=== PATIENT | female | born 1945 | race African-American/Black ===

== ENCOUNTER → 2016-07-22 | Outpatient (CLI) | payer MEDICARE, BC | LOC: RAD 10:21 | PROVIDERS: ATTEND Internal Medicine | DX: M25.511 Pain in right shoulder (principal) ==

== ENCOUNTER 2016-12-02 08:51 | Day surgery (SDC) | payer MEDICARE, BC, OTHER ==
[~2016-12-02 08:51] MED LIST: BESIFLOXACIN HCL 0.6% OPH SUSP 5 ML BOTTLE OD PRN; CYCLOPENTOLATE 0.2%/PHENYLEPHRINE 1% OPH SOLN 2 ML OD PRN; KETOROLAC TROMETHAMINE 0.45% 4 DROP/0.4 ML DROPERETTE OD PRN; TETRACAINE HCL 0.5% OPH SOLN 0.6 ML DROPERETTE OD PRN; TROPICAMIDE 1% OPH SOLN 3 ML OD PRN
[2016-12-02] MEDS ORDERED: LIDOCAINE 1% INJ-PF (10 MG/ML) 30 ML SDV ONE (09:50)
[2016-12-02] MEDS ORDERED: CHONDR SU A NA/HYALUR INTRAOC KIT (SURGICARE) ONE (09:50)
[2016-12-02] MEDS ORDERED: TOBRAMYCIN SULFATE/DEXAMETH OPH OINTMENT 3.5 GM ONE (09:50)
[2016-12-02] MEDS ORDERED: EPINEPHRINE INJ/PF 1 MG/1 ML AMPULE ONE (09:50)
[2016-12-02] MEDS ORDERED: MIDAZOLAM 2 MG/2 ML INJ ONE (09:53)
== END 2016-12-02 11:17 | disposition home or self-care (01) ==
LOC: SC 08:51
PROVIDERS: ATTEND Ophthalmology
PROC: 08RJ3JZ Replacement of Right Lens with Synthetic Substitute, Percutaneous Approach (ICD-10-PCS; principal; 2016-12-02 10:30)
DX: H25.11 Age-related nuclear cataract, right eye (principal); M19.90 Unspecified osteoarthritis, unspecified site; J30.2 Other seasonal allergic rhinitis; K21.9 Gastro-esophageal reflux disease without esophagitis; E78.00 Pure hypercholesterolemia, unspecified; Z79.899 Other long term (current) drug therapy; Z79.01 Long term (current) use of anticoagulants; Z87.891 Personal history of nicotine dependence; Z88.2 Allergy status to sulfonamides; Z88.0 Allergy status to penicillin; Z88.1 Allergy status to other antibiotic agents; Z98.61 Coronary angioplasty status
CPT/HCPCS: 66984; V2630; J2250; J3490 ×3; A9270; J0171; 142

== ENCOUNTER → 2016-12-23 | Day surgery (SDC) | payer MEDICARE, OTHER, BC ==
[~2016-12-23] MED LIST changes: +ACETYLCHOLINE CHLORIDE 20 MG/2 ML KIT ONE; -BESIFLOXACIN HCL 0.6% OPH SUSP 5 ML BOTTLE OD PRN; +CHONDR SU A NA/HYALUR INTRAOC KIT (SURGICARE) ONE; -CYCLOPENTOLATE 0.2%/PHENYLEPHRINE 1% OPH SOLN 2 ML OD PRN; +EPINEPHRINE INJ/PF 1 MG/1 ML AMPULE ONE; -KETOROLAC TROMETHAMINE 0.45% 4 DROP/0.4 ML DROPERETTE OD PRN; +KETOROLAC TROMETHAMINE 0.45% 4 DROP/0.4 ML DROPERETTE OS PRN; +LIDOCAINE 1% INJ-PF (10 MG/ML) 30 ML SDV ONE; +MIDAZOLAM 2 MG/2 ML INJ ONE; -TETRACAINE HCL 0.5% OPH SOLN 0.6 ML DROPERETTE OD PRN; -TROPICAMIDE 1% OPH SOLN 3 ML OD PRN
[2016-12-23] MEDS: TROPICAMIDE 1% OPH SOLN 3 ML OS PRN ×3 (09:53→10:12)
[2016-12-23] MEDS: CYCLOPENTOLATE 0.2%/PHENYLEPHRINE 1% OPH SOLN 2 ML OS PRN ×3 (09:53→10:12)
[2016-12-23] MEDS: BESIFLOXACIN HCL 0.6% OPH SUSP 5 ML BOTTLE OS PRN ×4 (09:54→11:02)
[2016-12-23] MEDS: TETRACAINE HCL 0.5% OPH SOLN 0.6 ML DROPERETTE OS PRN ×3 (09:55→10:27)
[2016-12-23] MEDS: TOBRAMYCIN SULFATE/DEXAMETH OPH OINTMENT 3.5 GM ONE ×2 (10:36→11:02)
[2016-12-23] MEDS: CHONDR SU A NA/HYALUR SOD 0.5 ML DISP.SYRIN ONE ×2 (10:38→10:43)
== END ==
LOC: SC 08:51
PROVIDERS: ATTEND Ophthalmology
PROC: 08RK3JZ Replacement of Left Lens with Synthetic Substitute, Percutaneous Approach (ICD-10-PCS; principal; 2016-12-23 10:30)
DX: H25.12 Age-related nuclear cataract, left eye (principal); Z96.1 Presence of intraocular lens; M19.90 Unspecified osteoarthritis, unspecified site; K21.9 Gastro-esophageal reflux disease without esophagitis; I10 Essential (primary) hypertension; E78.00 Pure hypercholesterolemia, unspecified; E89.0 Postprocedural hypothyroidism; Z88.5 Allergy status to narcotic agent; Z88.1 Allergy status to other antibiotic agents; Z79.01 Long term (current) use of anticoagulants; Z79.899 Other long term (current) drug therapy; Z87.891 Personal history of nicotine dependence; Z88.2 Allergy status to sulfonamides; Z88.0 Allergy status to penicillin
CPT/HCPCS: 66984; V2632; J3490 ×5; J2250; A9270; J0171; 142

== ENCOUNTER → 2016-12-30 | Outpatient (CLI) | payer MEDICARE, BC ==
--- NOTE | 2017-01-01 08:43 | WOMENS IMAGING REPORT ---
EXAM DESCRIPTION: 3D SCREENING MAMMO BILAT COMPLETED DATE/TIME: 12/30/2016 10:00 am REASON FOR STUDY: ROUTINE SCREENING 3D; Z12.31 Z12.31 ENCNTR SCREEN MAMMOGRAM FOR MALIGNANT NEOPLAS M OF LANDY COMPARISON: 2011 TECHNIQUE: Standard craniocaudal and mediolateral oblique views of each breast recorded using digita l acquisition and breast tomosynthesis. LIMITATIONS: None. FINDINGS: No masses, calcifications or architectural distortion. No areas of suspicion. Read with the assistance of CAD. .[facility] - R2 Cenova Version 1.3 .[facility] - R2 Cenova Version 1.[address] Imaging - R2 Cenova Version 2.4 .[facility] - R2 Cenova Version 2.4 .[facility] - R2 Hydraulics Teacher Version 9.2 IMPRESSION: NORMAL MAMMOGRAM. BIRADS 1. BREAST DENSITY: b. There are scattered areas of fibroglandular density. BIRAD: 1 NEGATIVE RECOMMENDATION: ROUTINE SCREENING COMMENT: The patient has been notified of the results by letter per SA requirements. Additional no tification policies are in place for contacting patient with suspicious or incomplete findings. Quality ID #[id number]: The [employer] recommends an annual screening mammogram for women aged 40 years or over. This facility utilizes a reminder system to ensure that all patients receive reminder letters, and/or direct phone calls for appointments. This includes reminders for routine scr eening mammograms, diagnostic mammograms, or other Breast Imaging Interventions when appropriate. Th is patient will be placed in the appropriate reminder system. The [employer] (ACR) has developed recommendations for screening MRI of the breast s in certain patient populations, to be used in conjunction with mammography. Breast MRI surveillanc e may be appropriate for women with more than 20% lifetime risk of developing breast cancer as deter mined by genetic testing, significant family history of the disease, or history of mantle radiation f or Hodgkins Disease. ACR Practice Guidelines 2008. DBT Technology DBT is a type of tomographic mammography. With conventional mammography, overlapping breast tissue ma y make lesions difficult to detect, even with good compression. DBT uses an x-ray tube that rotates a round the breast, taking images at different angles. These images are then combined to create thin sl ices of the breast that the radiologist can view as a 3D reconstruction. The WHOOP unit can perform full-field digital mammograms (2D imaging); or DBT (3D imaging); or both, in a combination mode that quickly performs both the mammogram and the tomosynthesis scan while the breast is still compressed. PQRS 6045F: Fluoroscopic imaging is not utilized for breast tomosynthesis. TECHNICAL DOCUMENTATION: FINDING NUMBER: (1) ASSESSMENT: (1) JOB ID: [id number] [employer]- All Rights Reserved
== END ==
LOC: WI 09:11
PROVIDERS: ATTEND Internal Medicine
DX: Z12.31 Encounter for screening mammogram for malignant neoplasm of breast (principal)
CPT/HCPCS: 77063; G0202; 77067

== ENCOUNTER → 2017-12-31 | Outpatient (CLI) | payer MEDICARE, OTHER ==
--- NOTE | 2017-12-31 11:44 | WOMENS IMAGING REPORT ---
EXAM DESCRIPTION: 3D SCREENING MAMMO BILAT COMPLETED DATE/TIME: 12/31/2017 11:12 am REASON FOR STUDY: SCREENING MAMMO Z12.31 ENCNTR SCREEN MAMMOGRAM FOR MALIGNANT NEOPLASM OF LANDY COMPARISON: 2011 TECHNIQUE: Standard craniocaudal and mediolateral oblique views of each breast recorded using digita l acquisition and breast tomosynthesis. LIMITATIONS: None. FINDINGS: No masses, calcifications or architectural distortion. No areas of suspicion. Read with the assistance of CAD. .[facility] - R2 Cenova Version 1.3 .[facility] Imaging - R2 Cenova Version 1.3 .[facility] Imaging - R2 Cenova Version 2.4 .[facility] - R2 Cenova Version 2.4 .[facility] - R2 Computer Security Specialist Version 9.2 IMPRESSION: NORMAL MAMMOGRAM. BIRADS 1. BREAST DENSITY: b. There are scattered areas of fibroglandular density. BIRAD: 1 NEGATIVE RECOMMENDATION: ROUTINE SCREENING Please continue yearly bilateral screening tomosynthesis in December 2018 COMMENT: The patient has been notified of the results by letter per MQSA requirements. Additional no tification policies are in place for contacting patient with suspicious or incomplete findings. Quality ID #[id number]: The [employer] recommends an annual screening mammogram for women aged 40 years or over. This facility utilizes a reminder system to ensure that all patients receive reminder letters, and/or direct phone calls for appointments. This includes reminders for routine scr eening mammograms, diagnostic mammograms, or other Breast Imaging Interventions when appropriate. Th is patient will be placed in the appropriate reminder system. The [employer] (ACR) has developed recommendations for screening MRI of the breast s in certain patient populations, to be used in conjunction with mammography. Breast MRI surveillanc e may be appropriate for women with more than 20% lifetime risk of developing breast cancer as deter mined by genetic testing, significant family history of the disease, or history of mantle radiation f or Hodgkins Disease. ACR Practice Guidelines 2008. DBT Technology DBT is a type of tomographic mammography. With conventional mammography, overlapping breast tissue ma y make lesions difficult to detect, even with good compression. DBT uses an x-ray tube that rotates a round the breast, taking images at different angles. These images are then combined to create thin sl ices of the breast that the radiologist can view as a 3D reconstruction. The [employer] unit can perform full-field digital mammograms (2D imaging); or DBT (3D imaging); or both, in a combination mode that quickly performs both the mammogram and the tomosynthesis scan while the breast is still compressed. PQRS 6045F: Fluoroscopic imaging is not utilized for breast tomosynthesis. TECHNICAL DOCUMENTATION: FINDING NUMBER: (1) ASSESSMENT: (1) JOB ID: [id number] [employer]- All Rights Reserved Reading location - IP/workstation name: [email or web address]
== END ==
LOC: WI 10:28
PROVIDERS: ATTEND Internal Medicine
DX: Z12.31 Encounter for screening mammogram for malignant neoplasm of breast (principal)
CPT/HCPCS: 77063; 77067

== ENCOUNTER → 2018-02-22 | Outpatient (CLI) | payer MEDICARE, OTHER ==
--- NOTE | 2018-02-22 12:09 | RADIOLOGY REPORT (SQ) ---
EXAM DESCRIPTION: CTA CHEST COMPLETED DATE/TIME: 02/22/2018 11:49 am REASON FOR STUDY: SOB (R06.02) R06.2 WHEEZING R06.02 SHORTNESS OF BREATH COMPARISON: 04/17/2016 TECHNIQUE: CT scan of the chest performed using helical scanning technique with dynamic intravenous contrast injection. Images reviewed with lung, soft tissue and bone windows. Reconstructed coronal and sagittal MPR images reviewed. Additional 3 dimensional post-processing performed to develop Maximal Intensity Projection images (OH P). All images stored on PACS. All CT scanners at this facility use dose modulation, iterative reconstruction, and/or weight based d osing when appropriate to reduce radiation dose to as low as reasonably achievable (ALARA). [facility]: Dose Right [facility]: CareDose [facility]: Dose Right [facility]: Teradose 4D [facility]: MileWise CONTRAST TYPE AND DOSE: contrast/concentration: Isovue 350.00 mg/ml; Total Contrast Delivered: 82.0 ml; Total Saline Delivered: 75.1 ml RENAL FUNCTION: Creatinine 1.3 RADIATION DOSE: CT Rad equipment meets quality standard of care and radiation dose reduction techniq ues were employed. CTDIvol: 16.5 - 22.1 mGy. DLP: 831 mGy-cm. . LIMITATIONS: None. FINDINGS: LUNGS AND PLEURA: Scarring in the lung bases. No evidence of pulmonary edema or pneumonia . AORTA AND GREAT VESSELS: No aneurysm. Contrast bolus not optimized for the aorta. HEART: No pericardial effusion. PULMONARY ARTERIES: No emboli visualized in the main pulmonary arteries or the segmental branches. HILAR AND MEDIASTINAL STRUCTURES: No identified masses or abnormal nodes. HARDWARE: None in the chest. UPPER ABDOMEN: No acute findings. Limited exam. THYROID AND OTHER SOFT TISSUES: No masses. No adenopathy. BONES: No acute or significant finding. 3D MIPS: Confirm above findings. OTHER: No other significant finding. IMPRESSION: No evidence of pulmonary embolus. COMMENT: Quality ID # [id number]: Final reports with documentation of one or more dose reduction techniques (e.g., Automated exposure control, adjustment of the mA and/or kV according to patient size, use of iterative reconstruction technique) TECHNICAL DOCUMENTATION: JOB ID: [id number] [employer]- All Rights Reserved Reading location - IP/workstation name: [email or web address]
== END ==
LOC: RAD 11:00
PROVIDERS: ATTEND Internal Medicine
DX: R06.02 Shortness of breath (principal); R06.2 Wheezing
CPT/HCPCS: 71275; 82565

== ENCOUNTER → 2018-03-17 | Outpatient (CLI) | payer MEDICARE ==
--- NOTE | 2018-03-17 13:46 | RADIOLOGY REPORT (SQ) ---
EXAM DESCRIPTION: CHEST 2 VIEWS COMPLETED DATE/TIME: 03/17/2018 1:08 pm REASON FOR STUDY: SHORTNESS OF BREATH (TO BE READ WITH VQ SCAN TODAY) COMPARISON: 04/17/2016 EXAM PARAMETERS: NUMBER OF VIEWS: two views TECHNIQUE: Digital Frontal and Lateral radiographic views of the chest acquired. RADIATION DOSE: NA LIMITATIONS: none FINDINGS: LUNGS AND PLEURA: No opacities, masses or pneumothorax. No pleural effusion. MEDIASTINUM AND HILAR STRUCTURES: No masses or contour abnormalities. HEART AND VASCULAR STRUCTURES: Heart normal size. No evidence for failure. BONES: No acute findings. HARDWARE: None in the chest. OTHER: No other significant finding. IMPRESSION: NO ACUTE RADIOGRAPHIC FINDING IN THE CHEST. TECHNICAL DOCUMENTATION: JOB ID: [id number] [employer]- All Rights Reserved Reading location - IP/workstation name: [email or web address]
--- NOTE | 2018-03-17 15:38 | RADIOLOGY REPORT (SQ) ---
EXAM DESCRIPTION: NM LUNG VENT/PERF SCAN COMPLETED DATE/TIME: 03/17/2018 1:13 pm REASON FOR STUDY: SHORTNESS OF BREATH R06.02 SHORTNESS OF BREATH COMPARISON: CT angio chest 02/22/2018, 04/17/2016 Ventilation-perfusion scan 11/14/2015 PET-CT 04/17/2016 RADIONUCLIDE AND DOSE: 5.4 millicuries TC-99m MAA Intravenous 31.3 millicuries TC-99m DTPA Inhaled aerosol TECHNIQUE: Eight views of the lungs acquired post ventilation of DTPA aerosol. Eight matching views of the lungs acquired following injection of MAA. LIMITATIONS: None. FINDINGS: VENTILATION: Symmetric and homogeneous distribution of DTPA aerosol during ventilatory pha se. No significant areas of photopenia. PERFUSION: Single bandlike scar in the superior segment right lower lobe, nonsegmental defect. Remai nder the perfusion images are otherwise unremarkable OTHER: No other significant finding. IMPRESSION: NORMAL VENTILATION-PERFUSION LUNG SCAN. NEGATIVE FOR PULMONARY EMBOLI. TECHNICAL DOCUMENTATION: JOB ID: [id number] [employer] All Rights Reserved Reading location - IP/workstation name: [email or web address]
== END ==
LOC: RAD 11:21
PROVIDERS: ATTEND Internal Medicine
DX: R06.02 Shortness of breath (principal)
CPT/HCPCS: 71046; 78582; A9540; A9567

== ENCOUNTER → 2018-05-05 | Outpatient (CLI) | payer MEDICARE, BC ==
[~2018-05-05] MED LIST changes: -ACETYLCHOLINE CHLORIDE 20 MG/2 ML KIT ONE; -CHONDR SU A NA/HYALUR INTRAOC KIT (SURGICARE) ONE; -EPINEPHRINE INJ/PF 1 MG/1 ML AMPULE ONE; -KETOROLAC TROMETHAMINE 0.45% 4 DROP/0.4 ML DROPERETTE OS PRN; -LIDOCAINE 1% INJ-PF (10 MG/ML) 30 ML SDV ONE; -MIDAZOLAM 2 MG/2 ML INJ ONE; +REGADENOSON INJ 0.4 MG/5 ML DISP.SYRIN IV ONE
--- NOTE | 2018-05-05 19:32 | DRAGON STRESS TEST REPORT ---
INTRAVENOUS LEXISCAN CARDIOLITE STRESS TEST USING SINGLE PHOTON EMMISION COMPUTERIZED TOMOGRAPHIC. DATE OF PROCEDURE: May 05, 2018, INDICATION : Shortness of breath CARDIAC RISK FACTORS: Hypertension, dyslipidemia RESTING EKG: Sinus rhythm, left axis deviation, no acute ST-T wave changes are noted STRESS EKG: No significant ST segment changes noted with LexiScan bolus REASON FOR TERMINATION: Protocol. PROCEDURE REPORT: Baseline heart rate 74 beats per minute with blood pressure of 102/57. Patient had no significant complaints. Patient was bolused with Lexiscan 0.4 mg intravenously followed by saline bolus. Heart rate at 2 minutes post bolus 94 with a blood pressure of 124/50. 3 minutes post bolus heart rate 89 with blood pressure of 108/48. No significant EKG changes were noted. Patient had no significant complaints during the procedure or postprocedure. CONCLUSIONS: Normal EKG and hemodynamic response to IV LexiScan. NUCLEAR DATA: At rest the patient was given 15.30 millicuries of technetium 99 sestamibi injected intravenously. As per protocol rest gated SPECT images were obtained. On day of stress test, the patient was given intravenous LexiScan at a dose of 0.4 mg in 5 mL intravenously, followed by flush with normal saline. Subsequently the stress dose of 4.4 millicuries of technetium 99 sestamibi was injected intravenously. As per protocol stress gated images were obtained. NUCLEAR INTERPRETATION: Both raw and processed data were used for interpretation. Visual, qualitative, computer-generated quantitative data was used. There was good myocardial uptake of technetium compound. Motion artifact and soft tissue attenuations were noted. Increased visceral uptake was noted. No definitive areas of transient perfusion defect noted, No definitive areas of fixed perfusion defect or scars noted. EKG gated imaging showed LV EF at 62%, rest and stress gated EF similar visually. T. I D. ratio was WNL. Lung heart ratio noted to be within normal limits WNL. No significant extracardiac and abnormal radiotracer activities were noted. RV free wall uptake was noted to be increased. IMPRESSION: Also refer to comments under nuclear interpretation. Also test results needs to be interpreted in the context of pretest probability. 1. No definitive areas of transient perfusion defect noted. 2. There is no definitive scintigraphic evidence of myocardial infarction/scar. 3. EKG gated imaging shows left ventricular ejection fraction of approx. 62 %. RV free wall uptake noted to be increased consistent with mild RVH. 4. Clinical correlation requested as worse disease and or balanced ischemia could be missed. In approximately 10% of the cases Lexiscan may not cause adequate vasodilatory stress. RECOMMENDATIONS: Aggressive risk factor modification and medical management. Further evaluation may be needed if continued symptoms or other high risk indicators are noted on clinical evaluation. Close cardiology follow-up is also recommended. Clinical correlation with echocardiogram derived ejection fraction. Inability to exercise by itself can lead to increased cardiovascular event risks. Consider cardiology consultation and or follow-up if clinically indicated. I am available for cardiology evaluation and consultation if requested by the grocery packer, unless patient already has a green chain puller. Dr. Chiquita Muniz. MRCP Board certified in cardiology and sleep medicine. Board certified in nuclear cardiology, adult echocardiography. GISELA
== END ==
LOC: RAD 06:40
PROVIDERS: ATTEND Internal Medicine
DX: R06.02 Shortness of breath (principal)
CPT/HCPCS: 93017; 78452; A9500; J2785; Q9969

== ENCOUNTER → 2018-05-16 | Outpatient (CLI) | payer MEDICARE, BC, OTHER ==
--- NOTE | 2018-05-16 14:00 | WOMENS IMAGING REPORT ---
EXAM DESCRIPTION: BONE DENSITY HIP/SPINE COMPLETED DATE/TIME: 05/16/2018 8:39 am REASON FOR STUDY: BONE DENSITY TEST/ M81.0 M81.0 AGE-RELATED OSTEOPOROSIS W/O CURRENT PATHOLOGICAL FRAC COMPARISON: None. TECHNIQUE: Dual-Energy X-ray Absorptiometry (DEXA) of the AP Spine and Hip. LIMITATIONS: None. FINDINGS: LUMBAR SPINE: The bone mineral density (BMD) measured from L1-L4 in the AP projection correlates with a T-score of 1.4, which is normal as defined by the World Health Organization. HIP: The bone mineral density (BMD) measured in the left hip correlates with a T-score of -1.4, which is o steopenia as defined by the World Health Organization. IMPRESSION: 1. LUMBAR SPINE: Normal 2. HIP: Osteopenia COMMENT: The World Health Organization defines low BMD as follows: T-score: Normal: Greater than -1.0 Osteopenia: Between -1.0 and -2.5 Osteoporosis: Less than -2.5 without fractures Established osteoporosis: Less than -2.5 with fractures In general, you may wish to consider: Diagnosis Treatment Follow-up DEXA Normal BMD Prevention 2-3 years Osteopenia Prevention/Therapy 1-2 years Osteoporosis Therapy Yearly TECHNICAL DOCUMENTATION: JOB ID: [id number] [employer]- All Rights Reserved Reading location - IP/workstation name: [email or web address]
== END ==
LOC: WI 07:39
PROVIDERS: ATTEND Internal Medicine
DX: M81.0 Age-related osteoporosis without current pathological fracture (principal)
CPT/HCPCS: 77080

== ENCOUNTER → 2018-10-26 | Outpatient (CLI) | payer MEDICARE, OTHER ==
--- NOTE | 2018-10-26 10:56 | RADIOLOGY REPORT (SQ) ---
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 Images reviewed wi th bone, brain and subdural windows. Additional sagittal and coronal reconstructions were generated. Images stored on PACS. All CT scanners at this facility use dose modulation, iterative reconstruction, and/or weight based d osing when appropriate to reduce radiation dose to as low as reasonably achievable (ALARA). [facility]: Dose Right [facility]: CareDose [facility]: Dose Right [facility]: Teradose 4D [facility]: Beatpacking RADIATION DOSE: CT Rad equipment meets quality standard of care and radiation dose reduction techniq ues were employed. CTDIvol: 48.5 mGy. DLP: 879 mGy-cm. mGy. LIMITATIONS: None. FINDINGS: VENTRICLES: Normal size and contour. CEREBRUM: No masses. No hemorrhage. No midline shift. No evidence for acute infarction. Normal gra y/white matter differentiation. No areas of low density in the white matter. CEREBELLUM: No masses. No hemorrhage. No alteration of density. No evidence for acute infarction. EXTRAAXIAL SPACES: No fluid collections. No masses. ORBITS AND GLOBE: No intra- or extraconal masses. Normal contour of globe without masses. CALVARIUM: No fracture. Torus palatinus. PARANASAL SINUSES: No fluid or mucosal thickening. SOFT TISSUES: No mass or hematoma. OTHER: No other significant finding. IMPRESSION: No evidence of large vascular territory infarct or other acute intracranial process. EVIDENCE OF ACUTE STROKE: NO. COMMENT: Quality ID # [id number]: Final reports with documentation of one or more dose reduction techniques (e.g., Automated exposure control, adjustment of the mA and/or kV according to patient size, use of iterative reconstruction technique) TECHNICAL DOCUMENTATION: JOB ID: [id number] [employer]- All Rights Reserved Reading location - IP/workstation name: [email or web address]
--- NOTE | 2018-10-26 11:02 | RADIOLOGY REPORT (SQ) ---
EXAM DESCRIPTION: HIP RIGHT AP/LATERAL COMPLETED DATE/TIME: 10/26/2018 10:18 am REASON FOR STUDY: PAIN IN RIGHT HIP (M25.551) COMPARISON: None. NUMBER OF VIEWS: Two view. LIMITATIONS: None. FINDINGS: Mild scoliosis. Mild SI DJD. Symphysis pubis intact. Hips look symmetric with minimal d egenerative osteophyte formation and very slight narrowing. No fracture or bone lesion. OTHER: No other significant finding. IMPRESSION: DJD. Relatively mild. No fracture or worrisome bone lesion. TECHNICAL DOCUMENTATION: JOB ID: [id number] Reading location - IP/workstation name: [email or web address]
== END ==
LOC: RAD 08:26
PROVIDERS: ATTEND Internal Medicine
DX: M25.551 Pain in right hip (principal); I63.9 Cerebral infarction, unspecified
CPT/HCPCS: 70450

== ENCOUNTER → 2018-12-14 | Outpatient (CLI) | payer MEDICARE, OTHER ==
--- NOTE | 2018-12-14 09:08 | RADIOLOGY REPORT (SQ) ---
EXAM DESCRIPTION: CT CERVICAL SPINE WITHOUT COMPLETED DATE/TIME: 12/14/2018 8:51 am REASON FOR STUDY: RADICULOPATHY,CERVICAL REGION M54.12 RADICULOPATHY, CERVICAL REGION COMPARISON: 03/29/2010 TECHNIQUE: Axial images acquired through the cervical spine without intravenous contrast. Images re viewed with lung, soft tissue and bone windows. Reconstructed coronal and sagittal MPR images review ed. Images stored on PACS. All CT scanners at this facility use dose modulation, iterative reconstruction, and/or weight based d osing when appropriate to reduce radiation dose to as low as reasonably achievable (ALARA). [facility]: Dose Right [facility]: CareDose [facility]: Dose Right [facility]: Teradose 4D [facility]: comScore RADIATION DOSE: CT Rad equipment meets quality standard of care and radiation dose reduction techniq ues were employed. CTDIvol: 22.3 mGy. DLP: 493 mGy-cm. mGy. LIMITATIONS: None. FINDINGS: ALIGNMENT: Anatomic. MINERALIZATION: Decreased. VERTEBRAL BODIES: No fractures or dislocation. DISCS: Multilevel degenerate disc disease with disc height loss and osteophytosis greatest at C5-6 an d C6-7, similar to prior. No evidence of high-grade osseous spinal canal stenosis. FACETS, LATERAL MASSES, POSTERIOR ELEMENTS: No fractures. No dislocation. No acute findings. Facet arthropathy greatest at C4-5 bilaterally. There moderate osseous neural foraminal narrowing seconda ry to facet and uncovertebral hypertrophy greatest at C5-6 on the right. HARDWARE: None in the spine. VISUALIZED RIBS: No fractures. LUNG APICES AND SOFT TISSUES: Enlargement of the right lobe of the thyroid without discrete nodule id entified, grossly stable compared to prior. Status post left thyroidectomy. OTHER: No other significant finding. IMPRESSION: 1. Multilevel degenerative changes of the cervical spine greatest at C5 - C7, similar t o prior. Moderate osseous neural foraminal narrowing secondary to facet and uncovertebral hypertroph y at C5-6 on the right. 2. No evidence of acute bony abnormality. TECHNICAL DOCUMENTATION: JOB ID: [id number] Quality ID # [id number]: Final reports with documentation of one or more dose reduction techniques (e.g., Au tomated exposure control, adjustment of the mA and/or kV according to patient size, use of iterative reconstruction technique) 2010 [employer]- All Rights Reserved Reading location - IP/workstation name: [email or web address]
== END ==
LOC: RAD 08:39
PROVIDERS: ATTEND Internal Medicine
DX: M54.12 Radiculopathy, cervical region (principal)
CPT/HCPCS: 72125

== ENCOUNTER 2019-06-25 07:24 | Emergency (ER) | payer MEDICARE, BC, OTHER ==
[2019-06-25 08:33] LABS: ABSOLUTE BASOPHILS # (AUTO) 0.1 10^3/uL (0.0-0.2); ABSOLUTE EOSINOPHILS # (AUTO) 0.1 10^3/uL (0.0-0.6); ABSOLUTE MONOCYTES (AUTO) 0.5 10^3/uL (0.1-1.4); ABSOLUTE NEUT (AUTO) 5.3 10^3/uL (1.7-8.2); BASOPHILS % (AUTO) 1.1 % (0-2); EOSINOPHILS % (AUTO) 1.8 % (0-6); HEMATOCRIT 39.6 % (36.0-47.0); HEMOGLOBIN 13.3 g/dL (12.0-15.5); LYMPHOCYTES % (AUTO) 25.2 % (13-45); MEAN CORPUSCULAR HEMOGLOBIN 28.7 pg (27.0-33.4); MEAN CORPUSCULAR HGB CONC 33.5 g/dL (32.0-36.0); MEAN CORPUSCULAR VOLUME 86 fl (80-97); MONOCYTES % (AUTO) 6.7 % (3-13); PLATELET COUNT 209 10^3/uL (150-450); RED BLOOD COUNT 4.63 10^6/uL (3.72-5.28); RED CELL DISTRIBUTION WIDTH 14.6 % (11.5-14.0); SEGMENTED NEUTROPHILS % (AUTO) 65.2 % (42-78); TOTAL CELLS COUNTED % (AUTO) 100 %; WHITE BLOOD COUNT 8.1 10^3/uL (4.0-10.5)
[2019-06-25 08:49] LABS: APPEARANCE,URINE CLEAR; BILIRUBIN,URINE NEGATIVE (NEGATIVE); COLOR,URINE YELLOW; GLUCOSE, URINE NEGATIVE (NEGATIVE); KETONES,URINE NEGATIVE (NEGATIVE); LEUKOCYTE ESTERASE,URINE NEGATIVE (NEGATIVE); NITRITE,URINE NEGATIVE (NEGATIVE); PROTEIN,URINE NEGATIVE (NEGATIVE); URINE SPECIFIC GRAVITY 1.015; UROBILINOGEN,URINE NEGATIVE mg/dL (<2.0)
[2019-06-25 08:52] LABS: ALBUMIN 4.3 g/dL (3.5-5.0); ALKALINE PHOSPHATASE 69 U/L (38-126); ANION GAP 8 (5-19); ASPARTATE AMINO TRANSFERASE 32 U/L (14-36); BILIRUBIN,DIRECT 0.2 mg/dL (0.0-0.4); BILIRUBIN,TOTAL 0.7 mg/dL (0.2-1.3); BLOOD UREA NITROGEN 20 mg/dL (7-20); CALCIUM 9.3 mg/dL (8.4-10.2); CARBON DIOXIDE 30 mmol/L (22-30); CHLORIDE 103 mmol/L (98-107); GLUCOSE 90 mg/dL (75-110); POTASSIUM 4.4 mmol/L (3.6-5.0); TOTAL PROTEIN 8.1 g/dL (6.3-8.2)
[2019-06-25] MEDS ORDERED: MORPHINE SULFATE 10 MG/ML INJ IV ONE (10:26)
--- NOTE | 2019-06-25 10:30 | ER Document Report ---
ED General - General Chief Complaint: Abdominal Pain Stated Complaint: FLANK PAIN Time Seen by Provider: 06/25/19 09:54 Primary Care Provider: BRI HENNING MD [Primary Care Provider] - Follow up as needed Notes: 73-year-old female presents emergency department complaining of right upper quadrant abdominal pain that radiates to her back and her shoulder blade since Wednesday. States that it is a cramping pressure that she thought might of been gas. States she took a laxative and had bowel movements for 3 days but no change in her pain. Denies dysuria or frequency, admits mild nausea. Denies any change with food. Denies any vomiting or diarrhea. States that she did have a partial right nephrectomy several years ago for kidney cancer. States that her kidney cancer has not been checked in recent years. TRAVEL OUTSIDE OF THE [place] IN LAST 30 DAYS: No - Related Data Allergies/Adverse Reactions: codeine [Codeine] Allergy (Intermediate, Verified 03/30/16 15:54) dizzy doxycycline Allergy (Intermediate, Verified 11/27/16 12:35) Hives doxylamine Allergy (Intermediate, Verified 11/27/16 12:35) Hives levofloxacin [From Levaquin] Allergy (Intermediate, Verified 11/27/16 12:35) NAUSEA/DIZZY oxycodone [Oxycodone] Allergy (Intermediate, Verified 11/27/16 12:35) NAUSEA/DIZZY Penicillins Allergy (Intermediate, Verified 03/30/16 15:54) Syncope Sulfa (Sulfonamide Antibiotics) Allergy (Intermediate, Verified 11/27/16 12:35) itching/RASH tramadol [Tramadol] Allergy (Intermediate, Verified 11/27/16 12:35) NAUSEA/DIZZY Past Medical History - General Information source: Patient - Social History Smoking Status: Never Smoker Chew tobacco use (# tins/day): No Frequency of alcohol use: None Drug Abuse: None Family History: COPD, Hypertension Patient has suicidal ideation: No Patient has homicidal ideation: No - Past Medical History Cardiac Medical History: Reports: Hx Hypercholesterolemia, Hx Hypertension, Hx Pulmonary Embolism Denies: Hx Heart Attack Pulmonary Medical History: Reports: Hx Asthma - NO MEDS, PULMONARY EMBOLISM 04/2016, Hx Tuberculosis - hypo Neurological Medical History: Denies: Hx Cerebrovascular Accident, Hx Seizures Endocrine Medical History: Reports: Hx Hypothyroidism Malignancy Medical History: Reports: Hx Renal (Kidney) Cancer - to have surgery 10/18/12 to remove mass from kidney GI Medical History: Reports: Hx Gastroesophageal Reflux Disease, Hx Hiatal Hernia. Denies: Hx Hepatitis, Hx Ulcer Psychiatric Medical History: Infectious Medical History: Denies: Hx Hepatitis Past Surgical History: Reports: Hx Cardiac Catheterization - July 2012, Hx Hysterectomy, Hx Kidney (Renal Surgery) - partial right nephrectomy, Hx Ortho pedic Surgery - L knee; L shoulder, Hx Thyroid Surgery - biopsy. Denies: Hx Mastectomy, Hx Open Heart Surgery, Hx Pacemaker - Immunizations Hx Diphtheria, Pertussis, Tetanus Vaccination: No - unk Hx Pneumococcal Vaccination: 07/19/07 Review of Systems - Review of Systems Constitutional: No symptoms reported Cardiovascular: See HPI Respiratory: No symptoms reported Gastrointestinal: See HPI Genitourinary: See HPI, Flank pain. denies: Dysuria, Discharge, Incontinence Skin: No symptoms reported -: Yes All other systems reviewed and negative Physical Exam - Vital signs Vitals: Temp Pulse Resp BP Pulse Ox 98.2 F 65 18 152/68 H 100 06/25/19 07:25 06/25/19 07:25 06/25/19 07:25 06/25/19 07:25 06/25/19 07:25 Interpretation: Hypertensive - Notes Notes: GENERAL: Alert, interacts well. No acute distress. HEAD: Normocephalic, atraumatic EYES: Pupils equal, round and reactive to light, extraocular movements intact. ENT: Oral mucosa moist, tongue midline. NECK: Full range of motion, supple, trachea midline. LUNGS: Clear to auscultation bilaterally, no wheezes, rales or rhonchi, no respiratory distress. HEART: Regular rate and rhythm, no murmurs, gallops, rubs. ABDOMEN: Soft, epigastric, right upper quadrant and right lower quadrant tenderness to palpation, nondistended, bowel sounds present in all 4 quadrants. EXTREMITIES: Moves all 4 extremities spontaneously, no edema, radial and dorsalis pedis pulses 2/4 bilaterally. No cyanosis. NEUROLOGICAL: Alert and oriented x3, normal speech. PSYCH: Normal mood, normal affect. SKIN: Warm, Dry, normal turgor, no rashes or lesions noted. Specifically no shingles noted. Course - Re-evaluation Re-evalutation: 06/25/19 15:30 CBC unremarkable, CMP grossly unremarkable, troponin negative, lipase normal, urinalysis shows no signs of blood or infection, given her right upper quadrant tenderness palpation I did order an ultrasound of her gallbladder and this was negative, given her history of renal cancer with partial nephrectomy that she states has not been followed up in several years I did get a CAT scan of the abdomen and pelvis because I was concerned that she may have had a reoccurrence of her renal cancer with local invasion that was causing this pain, scalp CAT scan was completely normal, no evidence of infection, mass or obstruction. Chest x-ray shows no acute process. Physical examination does not show any signs of shingles, she does have some reproducible tenderness to palpation along her ribs on the right-hand side on her back as well. Discussed with patient that she may later develop a vesicular rash that could indicate shingles, she is aware that if she develops a rash she should follow-up with her primary care physician or return to the emergency department. It is possible that this is coming from muscle spasm. Patient is agreeable to trying Flexeril and filling a prescription as an outpatient if it helps. She will follow-up with her primary care physician Dr. Arce as an outpatient. Patient is discharged home. - Vital Signs Vital signs: Temp Pulse Resp BP Pulse Ox 97.6 F 65 16 118/62 97 06/25/19 09:00 06/25/19 07:25 06/25/19 11:15 06/25/19 11:15 06/25/19 11:15 - Laboratory Result Diagrams: 06/25/19 08:20 06/25/19 08:20 Laboratory results interpreted by me: 06/25/19 06/25/19 08:20 08:20 RDW 14.6 H Est GFR ( Amer) 59 L Est GFR (MDRD) Non-Af 48 L Discharge - Discharge Clinical Impression: Acute right flank pain Condition: Stable Disposition: HOME, SELF-CARE Additional Instructions: I do not know exactly what is causing the pain on your right-hand side. Today we did not find any signs of kidney stone, kidney infection, urine infection or intestinal infection. Your gallbladder appeared normal. We are treating you with Flexeril for possible muscle spasm. If you develop a blistering rash on your right side or back please follow-up with your primary care physician or return to the emergency department as this may be shingles. Please return to the emergency department for vomiting, worsening pain, fevers or any new or concerning symptoms. Prescriptions: Cyclobenzaprine HCl [Flexeril 5 mg Tablet] 5 - 10 mg PO TIDP PRN #15 tablet PRN Reason: Referrals: BRI HENNING MD [Primary Care Provider] - Follow up as needed
--- NOTE | 2019-06-25 11:21 | RADIOLOGY REPORT (SQ) ---
EXAM DESCRIPTION: CHEST 2 VIEWS COMPLETED DATE/TIME: 06/25/2019 11:08 am REASON FOR STUDY: RTUQ pain to back, h/o kidney CA, part neph R COMPARISON: 03/17/2018 EXAM PARAMETERS: NUMBER OF VIEWS: two views TECHNIQUE: Digital Frontal and Lateral radiographic views of the chest acquired. RADIATION DOSE: NA LIMITATIONS: none FINDINGS: LUNGS AND PLEURA: No opacities, masses or pneumothorax. No pleural effusion. MEDIASTINUM AND HILAR STRUCTURES: No masses or contour abnormalities. HEART AND VASCULAR STRUCTURES: Heart normal size. No evidence for failure. BONES: No acute findings. HARDWARE: None in the chest. OTHER: No other significant finding. IMPRESSION: NO ACUTE RADIOGRAPHIC FINDING IN THE CHEST. TECHNICAL DOCUMENTATION: JOB ID: [id number] [employer]- All Rights Reserved Reading location - IP/workstation name: [email or web address]
--- NOTE | 2019-06-25 11:23 | RADIOLOGY REPORT (SQ) ---
EXAM DESCRIPTION: U/S ABDOMEN LIMITED W/O DOP COMPLETED DATE/TIME: 06/25/2019 11:04 am REASON FOR STUDY: RUQ pain, ? GB COMPARISON: None. TECHNIQUE: Dynamic and static grayscale images acquired of the abdomen and recorded on PACS. Additio nal selected color Doppler and spectral images recorded. LIMITATIONS: Limited visualization. Poor acoustical window FINDINGS: PANCREAS: No masses. Visualized pancreatic duct normal caliber. LIVER: Normal size Echo texture normal. No focal masses. LIVER VASCULATURE: Normal directional flow of the main portal vein and hepatic veins. GALLBLADDER: No stones. Normal wall thickness. No pericholecystic fluid. ULTRASOUND-DETECTED ALY'S SIGN: Negative. INTRAHEPATIC DUCTS AND COMMON DUCT: CBD and intrahepatic ducts normal caliber. No filling defects. INFERIOR VENA CAVA: Normal flow. AORTA: No aneurysm. RIGHT KIDNEY: Normal size. Normal echogenicity. No solid or suspicious masses. No hydronephros is. No calcifications. PERITONEAL AND RIGHT PLEURAL SPACE: No ascites or effusions. OTHER: No other significant findings. IMPRESSION: NORMAL RIGHT UPPER QUADRANT ULTRASOUND VISUALIZED. TECHNICAL DOCUMENTATION: JOB ID: [id number]- All Rights Reserved Reading location - IP/workstation name: [email or web address]
--- NOTE | 2019-06-25 13:47 | RADIOLOGY REPORT (SQ) ---
EXAM DESCRIPTION: CT ABD/PELVIS WITH IV ORAL COMPLETED DATE/TIME: 06/25/2019 1:29 pm REASON FOR STUDY: ruq pain to back,hx renal ca,rt part. neph COMPARISON: 08/12/2015 TECHNIQUE: CT scan of the abdomen and pelvis performed with intravenous and oral contrast using efrain jess scanning technique with dynamic intravenous contrast injection. Images reviewed with lung, soft t issue, and bone windows. Reconstructed coronal and sagittal MPR images reviewed. Delayed images for e valuation of the urinary system also acquired. All images stored on PACS. All CT scanners at this facility use dose modulation, iterative reconstruction, and/or weight based d osing when appropriate to reduce radiation dose to as low as reasonably achievable (ALARA). [facility]: Dose Right [facility]: CareDose [facility]: Dose Right [facility]: Teradose 4D [facility]: [employer] CONTRAST TYPE AND DOSE: contrast/concentration: Isovue 300.00 mg/ml; Total Contrast Delivered: 100.0 ml; Total Saline Delivered: 72.0 ml RENAL FUNCTION: GFR > 60. RADIATION DOSE: CT Rad equipment meets quality standard of care and radiation dose reduction techniq ues were employed. CTDIvol: 19.4 - 21.0 mGy. DLP: 2092 mGy-cm. . LIMITATIONS: Artifact from oral contrast in the stomach. FINDINGS: LOWER CHEST: Cardiomegaly. LIVER: Small cysts. No dilated ducts. SPLEEN: Normal size. No focal lesions. PANCREAS: Grossly obscured. GALLBLADDER: No identified stones by CT criteria. No inflammatory changes to suggest cholecystitis. ADRENAL GLANDS: Obscured. RIGHT KIDNEY AND URETER: Cortical scarring. No solid masses. No significant calcifications. No h ydronephrosis or hydroureter. LEFT KIDNEY AND URETER: No solid masses. No significant calcifications. No hydronephrosis or hydr oureter. AORTA AND VESSELS: No aneurysm. No dissection. Renal arteries, SMA, celiac without stenosis. RETROPERITONEUM: No retroperitoneal adenopathy, hemorrhage or masses. BOWEL AND PERITONEAL CAVITY: No obstruction. No visualized masses. No free fluid. No inflammatory ch anges or thickening of bowel wall. APPENDIX: Not visualized. PELVIS: No significant masses. Normal bladder. No free fluid. ABDOMINAL WALL: Fat containing umbilical hernia. BONES: No significant or acute findings. OTHER: No other significant finding. IMPRESSION: NO SIGNIFICANT OR ACUTE FINDINGS IN THE ABDOMEN OR PELVIS. TECHNICAL DOCUMENTATION: JOB ID: [id number] Quality ID # [id number]: Final reports with documentation of one or more dose reduction techniques (e.g., Au tomated exposure control, adjustment of the mA and/or kV according to patient size, use of iterative reconstruction technique) 2010 [employer]- All Rights Reserved Reading location - IP/workstation name: [email or web address]
[2019-06-25] MEDS ORDERED: ONDANSETRON HCL INJ/PF 4 MG/2 ML SDV IV ONE (14:18)
[2019-06-25] MEDS ORDERED: CYCLOBENZAPRINE HCL 10 MG TABLET PO ONE (15:30)
[2019-06-25 17:05] VITALS: BP 122/66
== END 2019-06-25 17:00 | disposition home or self-care (01) ==
LOC: ER 07:24
DX: R10.11 Right upper quadrant pain (principal); E78.00 Pure hypercholesterolemia, unspecified; I10 Essential (primary) hypertension; E03.9 Hypothyroidism, unspecified; Z86.711 Personal history of pulmonary embolism; Z88.2 Allergy status to sulfonamides; Z88.0 Allergy status to penicillin; Z88.6 Allergy status to analgesic agent; Z90.710 Acquired absence of both cervix and uterus; Z90.5 Acquired absence of kidney
CPT/HCPCS: 99284; 96374; 96375; 36415; 83690; 85025; 80053; 81001; 84484; 71046; 76705; 74177; A9270; J2270; J2405

== ENCOUNTER → 2019-07-24 | Outpatient (CLI) | payer MEDICARE, BC, OTHER ==
--- NOTE | 2019-07-24 15:24 | RADIOLOGY REPORT (SQ) ---
EXAM DESCRIPTION: KNEE LEFT 2 VIEWS COMPLETED DATE/TIME: 07/24/2019 3:14 pm REASON FOR STUDY: PAIN IN LEFT KNEE;SACROILIITIS; PAIN IN LEFT HIP M25.562 PAIN IN LEFT KNEE M46.1 SACROILIITIS, NOT ELSEWHERE CLASSIFIED M25.552 PAIN IN LEFT HIP COMPARISON: None. NUMBER OF VIEWS: Two views. TECHNIQUE: AP and lateral radiographic images acquired of the left knee. LIMITATIONS: None. FINDINGS: MINERALIZATION: Normal. BONES: No acute fracture dislocation. Significant tricompartment osteophytosis with mild joint space loss, greatest in the medial compartment. JOINT: No effusion. SOFT TISSUES: No soft tissue swelling. No radio-opaque foreign body. OTHER: No other significant finding. IMPRESSION: No acute bony abnormality. Moderate tricompartment osteoarthritis with mild medial joint space loss. TECHNICAL DOCUMENTATION: JOB ID: [id number] [employer]- All Rights Reserved Reading location - IP/workstation name: [email or web address]
--- NOTE | 2019-07-24 15:26 | RADIOLOGY REPORT (SQ) ---
EXAM DESCRIPTION: SACROILIAC JOINTS COMPLETED DATE/TIME: 07/24/2019 3:14 pm REASON FOR STUDY: PAIN IN LEFT KNEE;SACROILIITIS; PAIN IN LEFT HIP M25.562 PAIN IN LEFT KNEE M46.1 SACROILIITIS, NOT ELSEWHERE CLASSIFIED M25.552 PAIN IN LEFT HIP COMPARISON: None. NUMBER OF VIEWS: Three views. TECHNIQUE: AP and oblique views of the sacroiliac joints. LIMITATIONS: None. FINDINGS: MINERALIZATION: Normal. BONES: No acute fracture or dislocation. No worrisome bone lesions. Mild inferior sacroiliac osteophy marzena. JOINTS: The sacroiliac joints are patent. No unusual widening, sclerosis, or fusion. SOFT TISSUES: No soft tissue swelling. No radio-opaque foreign body. OTHER: Lower lumbar spondylosis. IMPRESSION: No acute bony abnormality. Mild osteophytosis at the bilateral sacroiliac joints. TECHNICAL DOCUMENTATION: JOB ID: [id number] [employer]- All Rights Reserved Reading location - IP/workstation name: [email or web address]
--- NOTE | 2019-07-24 15:28 | RADIOLOGY REPORT (SQ) ---
EXAM DESCRIPTION: HIP LEFT AP/LATERAL COMPLETED DATE/TIME: 07/24/2019 3:14 pm REASON FOR STUDY: PAIN IN LEFT KNEE;SACROILIITIS; PAIN IN LEFT HIP M25.562 PAIN IN LEFT KNEE M46.1 SACROILIITIS, NOT ELSEWHERE CLASSIFIED M25.552 PAIN IN LEFT HIP COMPARISON: None. NUMBER OF VIEWS: Two views. TECHNIQUE: AP pelvis and additional frog-leg view of the left hip. LIMITATIONS: None. FINDINGS: MINERALIZATION: Normal. LEFT HIP: No fracture dislocation. No suspicious osseous lesions. Mild osteophytosis. Joint space relatively well-maintained. Mild osteophytosis. Joint space well maintained. RIGHT HIP: No fracture or dislocation. No worrisome bone lesions. PUBIS AND ISCHIUM: No fracture. Mild degenerative changes at the pubic symphysis. PELVIS: No fracture. SACRUM: No fracture or dislocation. No worrisome bone lesions. LOWER LUMBAR SPINE: Lower lumbar facet arthropathy and spondylosis. SOFT TISSUES: No findings. OTHER: No other significant finding. IMPRESSION: No acute bony abnormality of the left hip and pelvis. Mild degenerative changes with well-maintained joint spaces. TECHNICAL DOCUMENTATION: JOB ID: [id number] [employer]- All Rights Reserved Reading location - IP/workstation name: [email or web address]
== END ==
LOC: OD 13:39
PROVIDERS: ATTEND Internal Medicine
DX: M17.12 Unilateral primary osteoarthritis, left knee (principal); M25.562 Pain in left knee; M25.752 Osteophyte, left hip; M25.552 Pain in left hip; M46.1 Sacroiliitis, not elsewhere classified; M47.896 Other spondylosis, lumbar region
CPT/HCPCS: 72200

== ENCOUNTER → 2019-09-01 | Outpatient (CLI) | payer MEDICARE, BC, OTHER ==
--- NOTE | 2019-09-01 15:07 | RADIOLOGY REPORT (SQ) ---
EXAM DESCRIPTION: FOOT RIGHT 2 VIEWS COMPLETED DATE/TIME: 09/01/2019 11:12 am REASON FOR STUDY: R60.9 EDEMA, UNSPECIFIED R60.9 EDEMA, UNSPECIFIED COMPARISON: None. NUMBER OF VIEWS: Two views. TECHNIQUE: AP and lateral radiographic images acquired of the right foot. LIMITATIONS: None. FINDINGS: MINERALIZATION: Osteopenia. BONES: No acute fracture or dislocation. JOINTS: Osteoarthrosis of the 1st MTP joint with an hallux valgus deformity. The normal tarsometatar juve alignment is preserved. SOFT TISSUES: Mild diffuse soft tissue swelling. OTHER: Enthesophytes at the calcaneal insertion of the plantar fascia and Achilles tendon. IMPRESSION: 1. Mild diffuse soft tissue swelling without an associated acute osseous abnormality. 2. Osteoarthrosis of the 1st MTP joint with an hallux valgus deformity. TECHNICAL DOCUMENTATION: JOB ID: [id number] [employer]- All Rights Reserved Reading location - IP/workstation name: [email or web address]
== END ==
LOC: RAD 10:33
PROVIDERS: ATTEND Internal Medicine
DX: R60.9 Edema, unspecified (principal)

== ENCOUNTER → 2019-11-24 | Outpatient (CLI) | payer MEDICARE, OTHER ==
--- NOTE | 2019-11-24 17:09 | RADIOLOGY REPORT (SQ) ---
EXAM DESCRIPTION: VENOUS BILATERAL LOWER IMAGES COMPLETED DATE/TIME: 11/24/2019 5:01 pm REASON FOR STUDY: BLE SWELLING R06.02 SHORTNESS OF BREATH COMPARISON: None. TECHNIQUE: Dynamic and static sheridan scale and color images acquired of both lower extremity venous sy stems. Selected spectral images acquired with additional compression and augmentation maneuvers. Imag es stored on PACS. LIMITATIONS: None. FINDINGS: RIGHT LEG COMMON FEMORAL AND FEMORAL: Normal phasicity, compression and augmentation. No visualized echogenic m aterial on sheridan scale. No defects on color images. POPLITEAL: Normal compression and augmentation. No visualized echogenic material on sheridan scale. No de fects on color images. CALF VESSELS: Normal compression and augmentation. No visualized echogenic material on sheridan scale. No defects on color image. GSV AND SSV: Normal compression. No visualized echogenic material on sheridan scale. No defects on color images. ANY DEEP VENOUS INSUFFICIENCY: Not evaluated. ANY EVIDENCE OF POPLITEAL CYST: No. OTHER: No other significant finding. LEFT LEG COMMON FEMORAL AND FEMORAL: Normal phasicity, compression and augmentation. No visualized echogenic m aterial on sheridan scale. No defects on color images. POPLITEAL: Normal compression and augmentation. No visualized echogenic material on sheridan scale. No de fects on color images. CALF VESSELS: Normal compression and augmentation. No visualized echogenic material on sheridan scale. No defects on color images. GSV AND SSV: Normal compression. No visualized echogenic material on sheridan scale. No defects on color images. ANY DEEP VENOUS INSUFFICIENCY: Not evaluated. ANY EVIDENCE POPLITEAL CYST: No. OTHER: No other significant finding. IMPRESSION: 1. NO EVIDENCE DVT OR SVT IN EITHER LEG. TECHNICAL DOCUMENTATION: JOB ID: [id number] 2010 [employer]- All Rights Reserved Reading location - IP/workstation name: [email or web address]
== END ==
LOC: OD 11:57
PROVIDERS: ATTEND Internal Medicine
DX: R06.02 Shortness of breath (principal); R22.43 Localized swelling, mass and lump, lower limb, bilateral
CPT/HCPCS: 36415; 85379; 93970

== ENCOUNTER 2019-12-08 05:47 | Emergency (ER) | payer MEDICARE, OTHER ==
[2019-12-08] MEDS ORDERED: MAG HYDROX/AL HYDROX/SIMETH SUSP 30 ML UDCUP PO ONE (06:30)
[2019-12-08] MEDS ORDERED: LIDOCAINE 2% VISCOUS SOLN 15 ML UDCUP PO ONE (06:30)
[2019-12-08 06:45] LABS: ABSOLUTE EOSINOPHILS # (AUTO) 0.2 10^3/uL (0.0-0.6); ABSOLUTE LYMPHOCYTES (AUTO) 1.8 10^3/uL (0.5-4.7); ABSOLUTE MONOCYTES (AUTO) 0.6 10^3/uL (0.1-1.4); ABSOLUTE NEUT (AUTO) 3.7 10^3/uL (1.7-8.2); BASOPHILS % (AUTO) 0.4 % (0-2); EOSINOPHILS % (AUTO) 2.9 % (0-6); HEMOGLOBIN 11.8 g/dL (12.0-15.5); LYMPHOCYTES % (AUTO) 28.1 % (13-45); MEAN CORPUSCULAR HEMOGLOBIN 28.9 pg (27.0-33.4); MEAN CORPUSCULAR HGB CONC 33.7 g/dL (32.0-36.0); MEAN CORPUSCULAR VOLUME 86 fl (80-97); MONOCYTES % (AUTO) 9.7 % (3-13); PLATELET COUNT 175 10^3/uL (150-450); RED BLOOD COUNT 4.08 10^6/uL (3.72-5.28); RED CELL DISTRIBUTION WIDTH 14.2 % (11.5-14.0); SEGMENTED NEUTROPHILS % (AUTO) 58.9 % (42-78); TOTAL CELLS COUNTED % (AUTO) 100 %; WHITE BLOOD COUNT 6.3 10^3/uL (4.0-10.5)
--- NOTE | 2019-12-08 06:53 | ER Document Report ---
Entered by DARIEN OLIVEIRA SCRIBE 12/08/19 0641 Acting as scribe for:JACE MURCIA MD ED General - General Chief Complaint: Chest Pressure Stated Complaint: LEFT ARM NUMBNESS Time Seen by Provider: 12/08/19 06:16 Primary Care Provider: BRI HENNING MD [Primary Care Provider] - Follow up as needed Mode of Arrival: Ambulatory Information source: Patient Notes: This 74 year old female patient presents to the emergency department today with complaints of shortness of breath with an associated epigastric pressure. Patient states that was sleeping and she got up to go to the bathroom at around 5:00 AM when her symptoms began. Patient adds that at first she began having this epigastric pressure sensation and her shortness of breath began she believes because of that. Of note, patient was started on doxycycline 3 days ago (12/04) for what she describes as fire ant bites to her right foot. TRAVEL OUTSIDE OF THE [place] IN LAST 30 DAYS: No - Related Data Allergies/Adverse Reactions: codeine [Codeine] Allergy (Intermediate, Verified 12/08/19 06:02) dizzy doxycycline Allergy (Intermediate, Verified 12/08/19 06:02) Hives doxylamine Allergy (Intermediate, Verified 12/08/19 06:02) Hives levofloxacin [From Levaquin] Allergy (Intermediate, Verified 12/08/19 06:02) NAUSEA/DIZZY oxycodone [Oxycodone] Allergy (Intermediate, Verified 12/08/19 06:02) NAUSEA/DIZZY Penicillins Allergy (Intermediate, Verified 12/08/19 06:02) Syncope Sulfa (Sulfonamide Antibiotics) Allergy (Intermediate, Verified 12/08/19 06:02) itching/RASH tramadol [Tramadol] Allergy (Intermediate, Verified 12/08/19 06:02) NAUSEA/DIZZY Past Medical History - General Information source: Patient - Social History Smoking Status: Never Smoker Cigarette use (# per day): No Frequency of alcohol use: None Drug Abuse: None Lives with: Family Family History: Reviewed & Not Pertinent, COPD, Hypertension Patient has homicidal ideation: No - Past Medical History Cardiac Medical History: Reports: Hx Hypercholesterolemia, Hx Hypertension, Hx Pulmonary Embolism Pulmonary Medical History: Reports: Hx Asthma - NO MEDS, PULMONARY EMBOLISM 04/2016, Hx Tuberculosis - hypo Endocrine Medical History: Reports: Hx Hypothyroidism Malignancy Medical History: Reports: Hx Renal (Kidney) Cancer - to have surgery 10/18/12 to remove mass from kidney GI Medical History: Reports: Hx Gastroesophageal Reflux Disease, Hx Hiatal Hernia Psychiatric Medical History: Past Surgical History: Reports: Hx Cardiac Catheterization - July 2012, Hx Hysterectomy, Hx Kidney (Renal Surgery) - partial right nephrectomy, Hx Orthopedic Surgery - L knee; L shoulder, Hx Thyroid Surgery - biopsy - Immunizations Hx Diphtheria, Pertussis, Tetanus Vaccination: No - unk Hx Pneumococcal Vaccination: 07/19/07 Review of Systems - Review of Systems Constitutional: denies: Fever EENT: No symptoms reported Cardiovascular: See HPI, Chest pain Respiratory: See HPI, Short of breath. denies: Cough Gastrointestinal: No symptoms reported Genitourinary: No symptoms reported Female Genitourinary: No symptoms reported Musculoskeletal: No symptoms reported Skin: No symptoms reported Hematologic/Lymphatic: No symptoms reported Neurological/Psychological: No symptoms reported -: Yes All other systems reviewed and negative Physical Exam - Vital signs Vitals: Temp 98.4 F 12/08/19 05:55 - Notes Notes: Physical Exam: General: Alert, appears well. Complains of shortness of breath with a heart rate of 60, oxygen saturation on room air of 100%, not tachypneic. HEENT: Normocephalic. Atraumatic. PERRL. Extraocular movements intact. Oropharynx clear. Neck: Supple. Non-tender. Respiratory: No respiratory distress. Clear and equal breath sounds bilaterally. Cardiovascular: Regular rate and rhythm. Abdominal: Obese. Mild epigastric tenderness with palpation. No distension. Normal Bowel Sounds. Back: No gross abnormalities. Extremities: Moves all four extremities. Upper extremities: Normal inspection. Normal ROM. Lower extremities: Normal inspection. No edema. Normal ROM. Neurological: Normal cognition. AAOx4. Normal speech. Psychological: Normal affect. Normal Mood. Skin: Warm. Dry. Normal color. Course - Re-evaluation Re-evalutation: 12/08/19 09:31 The GI cocktail helped the epigastric substernal symptoms. The patient is not tachypneic, room air pulse ox is 98%. She is not tachycardic. - Vital Signs Vital signs: Temp Pulse Resp BP Pulse Ox 98.4 F 13 112/63 97 12/08/19 05:55 12/08/19 07:01 12/08/19 07:00 12/08/19 07:01 - Laboratory Result Diagrams: 12/08/19 06:18 12/08/19 06:18 Laboratory results interpreted by me: 12/08/19 12/08/19 12/08/19 06:18 06:18 06:18 Hgb 11.8 L Hct 35.0 L RDW 14.2 H D-Dimer 1.39 H Potassium 3.4 L Est GFR ( Amer) 58 L Est GFR (MDRD) Non-Af 48 L Albumin 3.3 L - Diagnostic Test Radiology reviewed: Image reviewed, Reports reviewed - CTA chest does not show PE. There is some right basilar atelectasis. 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 - EKG Interpretation by Me EKG shows normal: Sinus rhythm, [place], Intervals, QRS Complexes, ST-T Waves Rate: Normal - 57 Rhythm: NSR [place]/QRS: LAHB/LAFB Voltage: Consistant with LVH Discharge - Discharge Clinical Impression: Dyspnea Qualifiers: Dyspnea type: shortness of breath Qualified Code(s): R06.02 - Shortness of breath; R06.00 - Dyspnea, unspecified; R06.01 - Orthopnea GERD (gastroesophageal reflux disease) Qualifiers: Esophagitis presence: without esophagitis Qualified Code(s): K21.9 - Gastro- esophageal reflux disease without esophagitis Condition: Stable Disposition: HOME, SELF-CARE Additional Instructions: Dyspnea, Nonspecific You were evaluated for shortness of breath, or dyspnea. Dyspnea has many causes, and some are more serious than others. Sometimes it's impossible to diagnose the cause of dyspnea with the tests that are available on an emergency basis. Based on our evaluation today, you do not need hospitalization now. We found no evidence of pneumonia, collapsed lung, blood clots in the lung, tumors, or heart failure. Causes of non-specific dyspnea can include asthma or bronchospasm, hyperventilation, emotional distress, heart disease, emphysema, fibrosis of the lung, and stiffness of the chest wall. In healthy individuals with a single episode, it's sometimes reasonable to do nothing but wait to see if the problem occurs again. Additional tests used to evaluate dyspnea can include cardiac stress testing, echocardiography, pulmonary function testing, CAT scan of the chest, bronchoscopy or pulmonary biopsy. Return if shortness of breath persists or worsens, or if you develop chest pain, fever, cough, confusion, or fainting. Reflux Disease (GERD) Gastro-Esophageal Reflux Disease (GERD) is caused by stomach acid refluxing back up into the esophagus. The valve at the end of the esophagus may be weak. This is common in persons with a hiatal hernia. GERD symptoms can include indigestion, chest pain, heartburn, or food "sticking." Certain foods, alcohol, and aspirin can make GERD worse. Treatment depends on the severity. Usually, antacids or acid-suppressing medicines are used. When the esophagus is acutely inflamed, the physician will often prescribe membrane-protective drugs such as Carafate. Some patients benefit from medication such as Reglan that tightens the valve at the top of the stomach. Avoid those foods that bring on your symptoms. For many people, these foods are coffee, chocolate, onions, garlic, and carbonated drinks. Don't use alcohol, aspirin, caffeine, or tobacco. Don't eat late at night -- within 4 hours of bedtime. Don't over-eat. If necessary, elevate the head of your bed about 4 inches so that stomach acid will not roll up into your esophagus. Call the doctor if you develop severe chest pain, inability to swallow fluids, fever, or worsening symptoms. Your epigastric discomfort is most likely due to reflux. The GI cocktail you are given numbed up that area and that is why it made it feel better. The scan of your lungs did not show any blood clots or any other explanation for your sensation of shortness of breath. Follow-up with Dr. Henning if not improving. RETURN TO THE EMERGENCY ROOM IF ANY NEW OR WORSENING SYMPTOMS. Referrals: OBRI CABEZAS MD [Primary Care Provider] - Follow up as needed I personally performed the services described in the documentation, reviewed and edited the documentation which was dictated to the scribe in my presence, and it accurately records my words and actions.
[2019-12-08 06:58] LABS: ALBUMIN 3.3 g/dL (3.5-5.0); ALKALINE PHOSPHATASE 69 U/L (38-126); ANION GAP 6 (5-19); ASPARTATE AMINO TRANSFERASE 25 U/L (14-36); BILIRUBIN,DIRECT 0.1 mg/dL (0.0-0.4); BILIRUBIN,TOTAL 0.5 mg/dL (0.2-1.3); BLOOD UREA NITROGEN 20 mg/dL (7-20); CALCIUM 8.6 mg/dL (8.4-10.2); CARBON DIOXIDE 28 mmol/L (22-30); CHLORIDE 105 mmol/L (98-107); CREATINE KINASE 128 U/L (30-135); GLUCOSE 103 mg/dL (75-110); POTASSIUM 3.4 mmol/L (3.6-5.0); TOTAL PROTEIN 6.7 g/dL (6.3-8.2)
--- NOTE | 2019-12-08 07:37 | RADIOLOGY REPORT (SQ) ---
EXAM DESCRIPTION: XR CHEST 1 VIEW COMPLETED DATE/TME: 12/08/2019 06:31 CLINICAL HISTORY: 74 years Female, SOB COMPARISON: 03/17/18 NUMBER OF VIEWS/TECHNIQUE: 1/AP FINDINGS: Clear lung cuevas. Normal cardiac silhouette size. No pneumothorax. Stable bony thorax.Atherosclerotic vascular disease. Degenerative disc disease. IMPRESSION: No acute cardiopulmonary findings.
[2019-12-08 08:00] LABS: APPEARANCE,URINE CLEAR; BILIRUBIN,URINE NEGATIVE (NEGATIVE); COLOR,URINE YELLOW; GLUCOSE, URINE NEGATIVE (NEGATIVE); KETONES,URINE NEGATIVE (NEGATIVE); LEUKOCYTE ESTERASE,URINE NEGATIVE (NEGATIVE); NITRITE,URINE NEGATIVE (NEGATIVE); PROTEIN,URINE NEGATIVE (NEGATIVE); URINE SPECIFIC GRAVITY 1.012; UROBILINOGEN,URINE NEGATIVE mg/dL (<2.0)
--- NOTE | 2019-12-08 08:03 | EKG REPORT ---
SEVERITY:- ABNORMAL ECG - SINUS RHYTHM LEFT ANTERIOR FASCICULAR BLOCK LEFT VENTRICULAR HYPERTROPHY : Confirmed by: Areli Wick MD 08-Dec-2019 08:02:33
--- NOTE | 2019-12-08 08:57 | RADIOLOGY REPORT (SQ) ---
EXAM DESCRIPTION: CTA CHEST IMAGES COMPLETED DATE/TIME: 12/08/2019 8:38 am REASON FOR STUDY: SOB, elevated dimer, PMH PE COMPARISON: None. TECHNIQUE: CT scan of the chest performed using helical scanning technique with dynamic intravenous contrast injection. Images reviewed with lung, soft tissue and bone windows. Reconstructed coronal and sagittal MPR images reviewed. Additional 3 dimensional post-processing performed to develop Maximal Intensity Projection images (CA P). All images stored on PACS. All CT scanners at this facility use dose modulation, iterative reconstruction, and/or weight based d osing when appropriate to reduce radiation dose to as low as reasonably achievable (ALARA). [facility]: Dose Right [facility]: CareDose [facility]: Dose Right [facility]: Teradose 4D [facility]: Desire2Learn CONTRAST TYPE AND DOSE: contrast/concentration: Isovue 350.00 mg/ml; Total Contrast Delivered: 71.0 ml; Total Saline Delivered: 62.0 ml Contrast bolus adequate for pulmonary arteries and aorta. RENAL FUNCTION: BUN 20, creatinine 1.12 RADIATION DOSE: CT Rad equipment meets quality standard of care and radiation dose reduction techn[employer]las Apps ues were employed. CTDIvol: 9.9 - 22.9 mGy. DLP: 821 mGy-cm. . LIMITATIONS: None. FINDINGS: LUNGS AND PLEURA: Atelectasis in the right base. No consolidation. AORTA AND GREAT VESSELS: No aneurysm. Contrast bolus not optimized for the aorta. HEART: No pericardial effusion. No significant coronary artery calcifications. PULMONARY ARTERIES: No emboli visualized in the main pulmonary arteries or the segmental branches. HILAR AND MEDIASTINAL STRUCTURES: No identified masses or abnormal nodes. HARDWARE: None in the chest. UPPER ABDOMEN: Multiple hepatic cysts. THYROID AND SOFT TISSUES: Enlarged right lobe of the thyroid gland which extends substernally. BONES: No acute or significant finding. 3D MIPS: Confirm above findings. OTHER: No other significant finding. IMPRESSION: 1. No pulmonary emboli. 2. Right basilar atelectasis. 3. Enlarged right lobe of the thyroid gland which extends substernally. COMMENT: Quality ID # [id number]: Final reports with documentation of one or more dose reduction techniques (e.g., Automated exposure control, adjustment of the mA and/or kV according to patient size, use of iterative reconstruction technique) TECHNICAL DOCUMENTATION: JOB ID: [id number] [employer]- All Rights Reserved Reading location - IP/workstation name: [email or web address]
[2019-12-08 10:35] VITALS: BP 128/81
== END 2019-12-08 10:45 | disposition home or self-care (01) ==
LOC: ER 05:47
DX: K21.9 Gastro-esophageal reflux disease without esophagitis (principal); R06.02 Shortness of breath; R06.01 Orthopnea; R10.13 Epigastric pain; I10 Essential (primary) hypertension; E78.00 Pure hypercholesterolemia, unspecified; Z88.6 Allergy status to analgesic agent; Z88.3 Allergy status to other anti-infective agents; Z88.0 Allergy status to penicillin; Z88.2 Allergy status to sulfonamides; Z90.710 Acquired absence of both cervix and uterus
CPT/HCPCS: 93005; 99285; 36415; 82550; 85025; 80053; 81001; 84484; 85379; 71045; 71275; 93010; J3490; A9270

== ENCOUNTER 2020-01-02 09:24 | Emergency (ER) | payer MEDICARE ==
[2020-01-02 10:08] LABS: ABSOLUTE EOSINOPHILS # (AUTO) 0.1 10^3/uL (0.0-0.6); ABSOLUTE LYMPHOCYTES (AUTO) 2.1 10^3/uL (0.5-4.7); ABSOLUTE MONOCYTES (AUTO) 0.6 10^3/uL (0.1-1.4); ABSOLUTE NEUT (AUTO) 4.2 10^3/uL (1.7-8.2); BASOPHILS % (AUTO) 0.5 % (0-2); EOSINOPHILS % (AUTO) 1.9 % (0-6); HEMATOCRIT 38.5 % (36.0-47.0); HEMOGLOBIN 12.6 g/dL (12.0-15.5); LYMPHOCYTES % (AUTO) 29.4 % (13-45); MEAN CORPUSCULAR HEMOGLOBIN 28.4 pg (27.0-33.4); MEAN CORPUSCULAR HGB CONC 32.6 g/dL (32.0-36.0); MEAN CORPUSCULAR VOLUME 87 fl (80-97); MONOCYTES % (AUTO) 8.3 % (3-13); PLATELET COUNT 189 10^3/uL (150-450); RED BLOOD COUNT 4.43 10^6/uL (3.72-5.28); RED CELL DISTRIBUTION WIDTH 14.5 % (11.5-14.0); SEGMENTED NEUTROPHILS % (AUTO) 59.9 % (42-78); TOTAL CELLS COUNTED % (AUTO) 100 %
[2020-01-02 10:25] LABS: ALBUMIN 3.7 g/dL (3.5-5.0); ALKALINE PHOSPHATASE 67 U/L (38-126); ASPARTATE AMINO TRANSFERASE 26 U/L (14-36); BILIRUBIN,TOTAL 0.3 mg/dL (0.2-1.3); BLOOD UREA NITROGEN 21 mg/dL (7-20); CALCIUM 9.2 mg/dL (8.4-10.2); CARBON DIOXIDE 31 mmol/L (22-30); CHLORIDE 103 mmol/L (98-107); CREATINE KINASE 83 U/L (30-135); GLUCOSE 87 mg/dL (75-110); POTASSIUM 3.8 mmol/L (3.6-5.0); TOTAL PROTEIN 7.4 g/dL (6.3-8.2)
[2020-01-02 10:32] LABS: ANION GAP 4 (5-19)
[2020-01-02 10:36] LABS: CREATINE KINASE MB 1.18 ng/mL (<4.55)
[2020-01-02 10:39] LABS: TROPONIN I < 0.012 ng/mL
--- NOTE | 2020-01-02 10:50 | RADIOLOGY REPORT (SQ) ---
EXAM DESCRIPTION: CHEST SINGLE VIEW IMAGES COMPLETED DATE/TIME: 01/02/2020 10:14 am REASON FOR STUDY: Abnormal heart rhythm COMPARISON: 12/08/2019 EXAM PARAMETERS: NUMBER OF VIEWS: One view. TECHNIQUE: Single frontal radiographic view of the chest acquired. RADIATION DOSE: NA LIMITATIONS: None. FINDINGS: LUNGS AND PLEURA: No opacities, masses or pneumothorax. No pleural effusion. MEDIASTINUM AND HILAR STRUCTURES: No masses. Contour normal. HEART AND VASCULAR STRUCTURES: Heart normal in size. Normal vasculature. BONES: No acute findings. HARDWARE: None in the chest. OTHER: No other significant finding. IMPRESSION: NO ACUTE RADIOGRAPHIC FINDING IN THE CHEST. TECHNICAL DOCUMENTATION: JOB ID: [id number] 2010 [employer]- All Rights Reserved Reading location - IP/workstation name: [email or web address]
--- NOTE | 2020-01-02 12:55 | EKG REPORT ---
SEVERITY:- ABNORMAL ECG - SINUS RHYTHM LEFT ANTERIOR FASCICULAR BLOCK LEFT VENTRICULAR HYPERTROPHY : Confirmed by: Daniele Marrufo MD 02-Jan-2020 12:55:22
--- NOTE | 2020-01-02 13:52 | ER Document Report ---
Entered by MANJINDER FISHMAN SCRIBE 01/02/20 1052 Acting as scribe for:BETTY JOHNSON MD ED General - General Chief Complaint: Palpitations Stated Complaint: PALPITATIONS Time Seen by Provider: 01/02/20 09:40 Primary Care Provider: BRI HENNING MD [Primary Care Provider] - Follow up as needed Information source: Patient Notes: This 74 year old female patient presents to the emergency department today with arrival by EMS. Patient states she slept normally last night and woke up this morning at 5 am to prepare food for her mother. Patient states she then sat down and after she got up and walked, she experienced shortness of breath and her heart rate increase. Patient states she has a history of SVT and last experienced this x6 months ago. Patient states she felt pain in her right chest that traveled to her abdomen causing nausea. Patient states these symptoms lasted x30 minutes, from its onset to EMS arrival and converting her back to her normal rhythm. TRAVEL OUTSIDE OF THE [place] IN LAST 30 DAYS: No - Related Data Allergies/Adverse Reactions: codeine [Codeine] Allergy (Intermediate, Verified 12/08/19 06:02) dizzy doxycycline Allergy (Intermediate, Verified 12/08/19 06:02) Hives doxylamine Allergy (Intermediate, Verified 12/08/19 06:02) Hives levofloxacin [From Levaquin] Allergy (Intermediate, Verified 12/08/19 06:02) NAUSEA/DIZZY oxycodone [Oxycodone] Allergy (Intermediate, Verified 12/08/19 06:02) NAUSEA/DIZZY Penicillins Allergy (Intermediate, Verified 12/08/19 06:02) Syncope Sulfa (Sulfonamide Antibiotics) Allergy (Intermediate, Verified 12/08/19 06:02) itching/RASH tramadol [Tramadol] Allergy (Intermediate, Verified 12/08/19 06:02) NAUSEA/DIZZY Past Medical History - General Information source: Patient - Social History Smoking Status: Never Smoker Cigarette use (# per day): No Family History: Reviewed & Not Pertinent, COPD, Hypertension Patient has homicidal ideation: No - Past Medical History Cardiac Medical History: Reports: Hx Hypercholesterolemia, Hx Hypertension, Hx Pulmonary Embolism Pulmonary Medical History: Reports: Hx Asthma - PULMONARY EMBOLISM 04/2016, Hx Pneumonia, Hx Tuberculosis - hypo Endocrine Medical History: Reports: Hx Hypothyroidism Malignancy Medical History: Reports: Hx Renal (Kidney) Cancer - to have surgery 10/18/12 to remove mass from kidney GI Medical History: Reports: Hx Gastroesophageal Reflux Disease, Hx Hiatal Hernia Psychiatric Medical History: Past Surgical History: Reports: Hx Cardiac Catheterization - July 2012, Hx Hysterectomy, Hx Kidney (Renal Surgery) - partial right nephrectomy, Hx Orthopedic Surgery - L knee; L shoulder, bunion bilateral feet, hip, Hx Thyroid Surgery - left removed, Hx Tubal Ligation - Immunizations Hx Diphtheria, Pertussis, Tetanus Vaccination: No - unk Hx Pneumococcal Vaccination: 07/19/07 Review of Systems - Review of Systems Constitutional: No symptoms reported EENT: No symptoms reported Cardiovascular: See HPI, Chest pain, Palpitations Respiratory: See HPI, Short of breath Gastrointestinal: See HPI, Abdominal pain, Nausea Genitourinary: No symptoms reported Female Genitourinary: No symptoms reported Musculoskeletal: No symptoms reported Skin: No symptoms reported Hematologic/Lymphatic: No symptoms reported Neurological/Psychological: No symptoms reported -: Yes All other systems reviewed and negative Physical Exam - Vital signs Vitals: Temp 97.7 F 01/02/20 09:24 - General General appearance: Appears well, Alert - HEENT Head: Normocephalic, Atraumatic Eyes: Normal Pupils: PERRL - Respiratory Respiratory status: No respiratory distress Chest status: Nontender Breath sounds: Normal Chest palpation: Normal - Cardiovascular Rhythm: Regular Heart sounds: Normal auscultation, S1 appreciated, S2 appreciated Murmur: No - Abdominal Inspection: Normal, Obese Distension: No distension Bowel sounds: Normal Tenderness: Nontender - Extremities General upper extremity: Normal inspection. No: Edema General lower extremity: Normal inspection. No: Edema - Neurological Neuro grossly intact: Yes Cognition: Normal Orientation: AAOx4 - Psychological Associated symptoms: Normal affect, Normal mood - Skin Skin Temperature: Warm Skin Moisture: Dry Skin Color: Normal Course - Re-evaluation Re-evalutation: 01/02/20 13:46 Patient not having any tachycardias or any chest discomfort at this time. Patient resting comfortably in bed. - Vital Signs Vital signs: Temp Pulse Resp BP Pulse Ox 97.7 F 15 125/64 96 01/02/20 09:31 01/02/20 13:01 01/02/20 13:01 01/02/20 13:01 01/02/20 13:46 Stable stable with a pulse of 55. - Laboratory Result Diagrams: 01/02/20 09:39 01/02/20 09:39 Laboratory results interpreted by me: 01/02/20 01/02/20 01/02/20 09:39 09:39 09:39 RDW 14.5 H Carbon Dioxide 31 H Anion Gap 4 L BUN 21 H Est GFR ( Amer) 58 L Est GFR (MDRD) Non-Af 48 L TSH 9.10 H 01/02/20 13:47 Laboratory essentially within normal range except that the TSH is 9.1 which is elevated. Patient is on 88 mcg of levothyroxine on a daily basis and however I recommended to her she discuss with her primary care doctor a need for an adjustment increase in her thyroid medication. - Diagnostic Test Radiology reviewed: Image reviewed, Reports reviewed Radiology results interpreted by me: 01/02/20 13:47 Chest x-ray shows no acute process. - EKG Interpretation by Me Additional EKG results interpreted by me: 01/02/20 13:49 Twelve-lead EKG shows normal sinus rhythm left ventricular hypertrophy and left anterior fascicular block noted. Discharge - Discharge Clinical Impression: Supraventricular tachycardia, paroxysmal, Hypothyroidism Condition: Stable Disposition: HOME, SELF-CARE Instructions: Paroxysmal Supraventricular Tachycardia ([facility]) Additional Instructions: Hypothyroidism The thyroid gland is found in the front of the neck. It produces thyroid hormone. Thyroid hormone regulates the metabolism. Hypothyroidism means the gland is not turning out enough thyroid hormone. Too much thyroid hormone "turns up the thermostat" too high, causing weight loss, nervousness, rapid heartbeat, and weakness. Too little thyroid hormone causes fatigue, depression, weight gain, and hair thinning. Hypothyroidism is treated with thyroid replacement pills. Testing can show if there are other hormone problems, and can determine whether the pituitary gland or thyroid gland is at fault. Contact the doctor or return if you change for the worse -- for example, palpitations, severe nervousness, chest pain, shortness of breath, worsening weakness or lightheadedness. Continue your same medications and please have a conversation with your primary care physician regarding your dose adjustment necessary for your hypothyroidism. Today your TSH is 9.1. Continue your same medications you take for control of blood pressure and pulse. Referrals: BRI HENNING MD [Primary Care Provider] - Follow up as needed I personally performed the services described in the documentation, reviewed and edited the documentation which was dictated to the scribe in my presence, and it accurately records my words and actions.
[2020-01-02 14:13] VITALS: BP 126/72
== END 2020-01-02 14:00 | disposition home or self-care (01) ==
LOC: ER 09:24
DX: I47.1 Supraventricular tachycardia (principal); E03.9 Hypothyroidism, unspecified; R07.9 Chest pain, unspecified; R00.2 Palpitations; R06.02 Shortness of breath; R10.9 Unspecified abdominal pain; R11.0 Nausea; Z88.8 Allergy status to other drugs, medicaments and biological substances; Z88.0 Allergy status to penicillin; Z88.1 Allergy status to other antibiotic agents; Z88.2 Allergy status to sulfonamides; I10 Essential (primary) hypertension; J45.909 Unspecified asthma, uncomplicated
CPT/HCPCS: 36415; 71045; 80053; 82550; 82553; 84443; 84484; 85025; 93005; 93010; 99285

== ENCOUNTER 2020-02-27 16:50 | Emergency (ER) | payer MEDICARE, BC, OTHER ==
--- NOTE | 2020-02-27 17:49 | ER Document Report ---
ED General - General Chief Complaint: Irregular Pulse Stated Complaint: HEART RATE ISSUES Time Seen by Provider: 02/27/20 17:09 Primary Care Provider: BRI HENNING MD [Primary Care Provider] - Follow up as needed TRAVEL OUTSIDE OF THE [place] IN LAST 30 DAYS: No - HPI Notes: Chief complaint: Palpitations/SVT History of present illness: 74-year-old female followed by Dr. 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 She says she suddenly felt rapid heart action like her heart was "jumping" inside her [address] She felt some brief vague chest tightness with this. She felt a little woozy but did not faint. EMS was called. They arrived and found her in SVT with a rate of 165. They administered 6 mg of adenosine IV. The patient immediately converted back to a normal sinus rhythm. She is asymptomatic at this time. She is recently been seen by envelope cutter Dr. Graf in [facility] and is wearing a cardiac monitoring device. She denies vomiting or diarrhea. She says she is fully compliant with her medications. We also note that she has a history of hypothyroidism and is on thyroid replacement. She was recently seen by her primary care doctor and says they have not made any additional adjustments and her thyroid replacement. She is a non-smoker. She denies significant caffeine intake. - Related Data Allergies/Adverse Reactions: codeine [Codeine] Allergy (Intermediate, Verified 12/08/19 06:02) dizzy doxycycline Allergy (Intermediate, Verified 12/08/19 06:02) Hives doxylamine Allergy (Intermediate, Verified 12/08/19 06:02) Hives levofloxacin [From Levaquin] Allergy (Intermediate, Verified 12/08/19 06:02) NAUSEA/DIZZY oxycodone [Oxycodone] Allergy (Intermediate, Verified 12/08/19 06:02) NAUSEA/DIZZY Penicillins Allergy (Intermediate, Verified 12/08/19 06:02) Syncope Sulfa (Sulfonamide Antibiotics) Allergy (Intermediate, Verified 12/08/19 06:02) itching/RASH tramadol [Tramadol] Allergy (Intermediate, Verified 12/08/19 06:02) NAUSEA/DIZZY Home Medications: Stiolto respimat. atorvastatin. aspirin. furosemide. larsartan hctz. levethroxine. meloxicam. metoprolol. metolazone. mo ntelukast. omprazole. vitamin d2 Past Medical History - General Information source: Patient, [facility] Records - Social History Smoking Status: Never Smoker Frequency of alcohol use: None Drug Abuse: None Lives with: Family Family History: Reviewed & Not Pertinent, COPD, Hypertension - Past Medical History Cardiac Medical History: Reports: Hx Hypercholesterolemia, Hx Hypertension, Hx Pulmonary Embolism Denies: Hx Heart Attack Pulmonary Medical History: Reports: Hx Asthma - PULMONARY EMBOLISM 04/2016, Hx Pneumonia, Hx Tuberculosis - hypo Neurological Medical History: Denies: Hx Cerebrovascular Accident, Hx Seizures Endocrine Medical History: Reports: Hx Hypothyroidism Malignancy Medical History: Reports: Hx Renal (Kidney) Cancer - to have surgery 10/18/12 to remove mass from kidney GI Medical History: Reports: Hx Gastroesophageal Reflux Disease, Hx Hiatal Hernia. Denies: Hx Hepatitis, Hx Ulcer Psychiatric Medical History: Infectious Medical History: Denies: Hx Hepatitis Past Surgical History: Reports: Hx Cardiac Catheterization - July 2012, Hx Hysterectomy, Hx Kidney (Renal Surgery) - partial right nephrectomy, Hx Orthopedic Surgery - L knee; L shoulder, bunion bilateral feet, hip, Hx Thyroid Surgery - left removed, Hx Tubal Ligation. Denies: Hx Mastectomy, Hx Open Heart Surgery, Hx Pacemaker - Immunizations Hx Diphtheria, Pertussis, Tetanus Vaccination: No - unk Hx Pneumococcal Vaccination: 07/19/07 Review of Systems - Review of Systems Notes: Constitutional: Negative for fever. HENT: Negative for sore throat. Eyes: Negative for visual changes. Cardiovascular: As per HPI. Respiratory: Negative for shortness of breath. Gastrointestinal: Negative for abdominal pain, vomiting or diarrhea. Genitourinary: Negative for dysuria. Musculoskeletal: Negative for back pain. Skin: Negative for rash. Neurological: Negative for headaches, focal weakness or numbness. 10 point ROS negative except as marked above and in HPI. Physical Exam - Vital signs Vitals: Resp 17 02/27/20 16:53 - Notes Notes: GENERAL: Female patient appearing somewhat younger than stated age appearing in no acute distress. SKIN: Good turgor no rashes. HEAD: Normocephalic atraumatic. EYES: PERRLA. EOMI. Conjunctivae and sclerae clear. EARS: CANALS AND TMS CLEAR. NOSE: CLEAR. MOUTH: Moist mucosa. Good dentition. No stridor or edema. No drooling. NECK: Supple. No masses or thyromegaly. No adenopathy. Carotids 2+ without bruits. No JVD. BACK: Symmetrical without tenderness. CHEST: Respirations unlabored. Breath sounds clear and symmetrical. HEART: Regular rhythm. No murmur gallop or rub. ABDOMEN: Soft nontender without masses, organomegaly or rebound. Bowel sounds normally active. No bruits. GENITALIA: Deferred. EXTREMITIES: No edema. No calf tenderness. Cap refill less than 1.5 seconds. Dorsalis pedis and posterior tibial pulses 3+ and symmetrical. NEUROLOGICAL: GCS 15. Alert and oriented x3. Fluent speech. Cranial nerves II through XII intact. Sensorimotor and cerebellar normal. Normal tone. PSYCHIATRIC: Appropriate affect. Course - Re-evaluation Re-evalutation: 02/27/20 20:52 Patient remained on cardiac monitoring in the emergency department and was persistently in a normal sinus rhythm in the low 60s. Blood pressures been stable. She has had no chest pain shortness of breath or other symptoms since arrival here. Her TSH level was normal. Her troponin is normal. Her chemistry profile and CBC are unremarkable. Her chest x-ray is normal. Her EKG shows no acute ST changes. 02/27/20 20:54 Findings were reviewed with her primary care physician, Dr. Henning who recommends no changes in her medications and he feels that she is fine to be discharged and follow-up in the office within the next 48 hours. Findings, clinical impression and plan of treatment have been discussed with patient/family. Understanding of current findings and recommendations has been acknowledged by them and there is agreement regarding disposition and follow-up. - Vital Signs Vital signs: Temp Pulse Resp BP Pulse Ox 16 108/60 97 02/27/20 20:01 02/27/20 20:00 02/27/20 20:01 - Laboratory Result Diagrams: 02/27/20 17:20 02/27/20 17:20 Laboratory results interpreted by me: 02/27/20 02/27/20 02/27/20 17:20 17:20 17:20 RDW 14.1 H Sodium 136.8 L Anion Gap 4 L BUN 23 H Est GFR ( Amer) 55 L Est GFR (MDRD) Non-Af 45 L NT-Pro-B Natriuret Pep 146 H - Diagnostic Test Radiology reviewed: Image reviewed - Mild cardiomegaly on portable chest x-ray - EKG Interpretation by Me Additional EKG results interpreted by me: 02/27/20 17:50 Twelve-lead EKG from 1700 hrs. reviewed contemporaneously by me showing normal sinus rhythm rate of 78. 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 There are no ST/T wave changes noted today. Impre ssion normal sinus rhythm with pre-existing left anterior fascicular block and left ventricular hypertrophy. Indication for current study is: PSVT postconversion. Discharge - Discharge Clinical Impression: PSVT (paroxysmal supraventricular tachycardia) Condition: Stable Disposition: HOME, SELF-CARE Instructions: Paroxysmal Supraventricular Tachycardia ([facility]) Additional Instructions: Continue current medications as previously prescribed. Return to emergency department as needed for new or worsening symptoms. See your primary care provider within the next 48 hours for office follow-up. Referrals: BRI HENNING MD [Primary Care Provider] - Follow up as needed
[2020-02-27 17:58] LABS: ABSOLUTE EOSINOPHILS # (AUTO) 0.1 10^3/uL (0.0-0.6); ABSOLUTE LYMPHOCYTES (AUTO) 3.1 10^3/uL (0.5-4.7); ABSOLUTE MONOCYTES (AUTO) 0.8 10^3/uL (0.1-1.4); ABSOLUTE NEUT (AUTO) 4.2 10^3/uL (1.7-8.2); BASOPHILS % (AUTO) 0.3 % (0-2); EOSINOPHILS % (AUTO) 1.8 % (0-6); HEMATOCRIT 39.3 % (36.0-47.0); HEMOGLOBIN 12.9 g/dL (12.0-15.5); LYMPHOCYTES % (AUTO) 37.7 % (13-45); MEAN CORPUSCULAR HEMOGLOBIN 28.4 pg (27.0-33.4); MEAN CORPUSCULAR HGB CONC 32.7 g/dL (32.0-36.0); MEAN CORPUSCULAR VOLUME 87 fl (80-97); MONOCYTES % (AUTO) 9.4 % (3-13); PLATELET COUNT 190 10^3/uL (150-450); RED BLOOD COUNT 4.52 10^6/uL (3.72-5.28); RED CELL DISTRIBUTION WIDTH 14.1 % (11.5-14.0); SEGMENTED NEUTROPHILS % (AUTO) 50.8 % (42-78); TOTAL CELLS COUNTED % (AUTO) 100 %; WHITE BLOOD COUNT 8.3 10^3/uL (4.0-10.5)
[2020-02-27 18:09] LABS: ALBUMIN 4.1 g/dL (3.5-5.0); ALKALINE PHOSPHATASE 74 U/L (38-126); ASPARTATE AMINO TRANSFERASE 24 U/L (14-36); BILIRUBIN,TOTAL 0.6 mg/dL (0.2-1.3); BLOOD UREA NITROGEN 23 mg/dL (7-20); CALCIUM 9.4 mg/dL (8.4-10.2); CHLORIDE 104 mmol/L (98-107); GLUCOSE 91 mg/dL (75-110); POTASSIUM 3.7 mmol/L (3.6-5.0); TOTAL PROTEIN 7.9 g/dL (6.3-8.2)
[2020-02-27 18:14] LABS: CARBON DIOXIDE 29 mmol/L (22-30)
--- NOTE | 2020-02-27 18:14 | RADIOLOGY REPORT (SQ) ---
EXAM DESCRIPTION: CHEST SINGLE VIEW IMAGES COMPLETED DATE/TIME: 02/27/2020 5:49 pm REASON FOR STUDY: cp COMPARISON: 01/02/2020 EXAM PARAMETERS: NUMBER OF VIEWS: One view. TECHNIQUE: Single frontal radiographic view of the chest acquired. RADIATION DOSE: NA LIMITATIONS: None. FINDINGS: LUNGS AND PLEURA: No opacities, masses or pneumothorax. No pleural effusion. MEDIASTINUM AND HILAR STRUCTURES: No masses. Contour normal. HEART AND VASCULAR STRUCTURES: The heart size is borderline. BONES: No acute findings. HARDWARE: Monitoring device. OTHER: No other significant finding. IMPRESSION: Borderline cardiomegaly without pulmonary edema. TECHNICAL DOCUMENTATION: JOB ID: [id number] 2010 [employer]- All Rights Reserved Reading location - IP/workstation name: [email or web address]
[2020-02-27 18:15] LABS: ANION GAP 4 (5-19)
[2020-02-27 18:19] LABS: NT PRO BNP 146 pg/mL (<125)
[2020-02-27 18:24] LABS: TROPONIN I < 0.012 ng/mL
--- NOTE | 2020-02-27 19:38 | EKG REPORT ---
SEVERITY:- ABNORMAL ECG - SINUS RHYTHM LEFT ANTERIOR FASCICULAR BLOCK LEFT VENTRICULAR HYPERTROPHY : Confirmed by: Eduardo Antonio MD 27-Feb-2020 19:37:58
[2020-02-27 21:24] VITALS: BP 117/69
== END 2020-02-27 21:24 | disposition home or self-care (01) ==
LOC: ER 16:50
DX: I47.1 Supraventricular tachycardia (principal); E78.00 Pure hypercholesterolemia, unspecified; I10 Essential (primary) hypertension; Z86.711 Personal history of pulmonary embolism; Z88.0 Allergy status to penicillin; Z88.2 Allergy status to sulfonamides; Z88.6 Allergy status to analgesic agent
CPT/HCPCS: 36415; 71045; 80053; 83735; 83880; 84443; 84484; 85025; 93005; 93010; 99285

== ENCOUNTER → 2020-04-24 | Outpatient (CLI) | payer MEDICARE, BC, OTHER ==
--- NOTE | 2020-04-24 14:32 | RADIOLOGY REPORT (SQ) ---
EXAM DESCRIPTION: MRI LT UPPER JOINT WITHOUT IMAGES COMPLETED DATE/TIME: 04/24/2020 2:00 pm REASON FOR STUDY: (M25.532)PAIN IN LEFT WRIST M25.532 PAIN IN LEFT WRIST COMPARISON: None. TECHNIQUE: Left wrist images acquired and stored on PACS. Multiplanar images include fat sensitive sequences as T1, fluid sensitive sequences as FST2/STIR, cartilage sensitive sequences as FSPD, gradi ent echo sequences. LIMITATIONS: None. FINDINGS: BONE MARROW: No alteration of signal to suggest marrow replacement or edema. No occult fra cture. No large osteophytes. CARPAL ALIGNMENT AND ARTICULATION: Mild negative ulnar variance. Normal capitolunate angle. No widen ing of scapholunate articulation. EFFUSION: None noted. No loose bodies. SCAPHOLUNATE LIGAMENT: Intact without tear. LUNATE-TRIQUETRAL LIGAMENT: Intact without tear. TFC COMPLEX: Attachments are normal. There is some degenerative change of the meniscus. EXTRINSIC LIGAMENTS AND DISTAL RADIO-ULNAR JOINT: Dorsal and volar distal RUJ intact without subluxat ion of the distal ulna. 1-6 EXTENSOR COMPARTMENTS: Normal. Specifically no tendinopathy of the abductor pollicis longus or ex tensor pollicis brevis to suggest de Quervain's Syndrome. CARPAL TUNNEL AND MEDIAN NERVE: Normal volume and morphology of the carpal tunnel proximally at the l evel of the radiocarpal joint and distally at the hook of the hamate. No thickening or signal alterat ion of the median nerve. There is edema in the trapezium and fluid in the tendon sheath of the flexor carpi radialis tendon. OTHER: No other significant finding. IMPRESSION: Edema of the trapezium, with fluid in the tendon sheath of the flexor carpi the radialis tendon. TECHNICAL DOCUMENTATION: JOB ID: [id number] 2010 [employer]- All Rights Reserved Reading location - IP/workstation name: [email or web address]
== END ==
LOC: RAD 12:51
PROVIDERS: ATTEND Internal Medicine
DX: M25.532 Pain in left wrist (principal)

== ENCOUNTER → 2020-05-24 | Outpatient (CLI) | payer MEDICARE, BC, OTHER ==
--- NOTE | 2020-05-24 14:10 | RADIOLOGY REPORT (SQ) ---
EXAM DESCRIPTION: CT ABD/PELVIS WITH IV ORAL IMAGES COMPLETED DATE/TIME: 05/24/2020 10:47 am REASON FOR STUDY: LOWER ABDOMINAL PAIN R10.13 EPIGASTRIC PAIN COMPARISON: 06/25/2019 TECHNIQUE: CT scan of the abdomen and pelvis performed using helical scanning technique with dynamic intravenous contrast injection. Oral contrast. Images reviewed with lung, soft tissue, and bone win dows. Reconstructed coronal and sagittal MPR images reviewed. Delayed images for evaluation of the ur inary system also acquired. All images stored on PACS. All CT scanners at this facility use dose modulation, iterative reconstruction, and/or weight based d osing when appropriate to reduce radiation dose to as low as reasonably achievable (ALARA). [facility]: Dose Right [facility]: CareDose [facility]: Dose Right [facility]: Teradose 4D [facility]: Connect CONTRAST TYPE AND DOSE: contrast/concentration: Isovue 350.00 mmol/ml; Total Contrast Delivered: 100 .0 ml; Total Saline Delivered: 33.0 ml RENAL FUNCTION: Creatinine 1.3 RADIATION DOSE: CT Rad equipment meets quality standard of care and radiation dose reduction techniq ues were employed. CTDIvol: 20.0 - 24.9 mGy. DLP: 2248 mGy-cm.. LIMITATIONS: None. FINDINGS: LOWER CHEST: There is pleural/parenchymal scarring in the left posterior costophrenic sulc us. LIVER: A couple of small cysts are present in the liver. No masses. SPLEEN: Normal size. No focal lesions. PANCREAS: No masses. No significant calcifications. No adjacent inflammation or peripancreatic fluid collections. Pancreatic duct not dilated. GALLBLADDER: No identified stones by CT criteria. No inflammatory changes to suggest cholecystitis. ADRENAL GLANDS: No significant masses or asymmetry. RIGHT KIDNEY AND URETER: No masses. There is a small area of cortical scarring in the upper pole. No significant calcifications. No hydronephrosis or hydroureter. LEFT KIDNEY AND URETER: No solid masses. No significant calcifications. No hydronephrosis or hydr oureter. AORTA AND VESSELS: No aneurysm. No dissection. Renal arteries, SMA, celiac without stenosis. RETROPERITONEUM: No retroperitoneal adenopathy, hemorrhage or masses. BOWEL AND PERITONEAL CAVITY: Mild sigmoid diverticulosis with no associated inflammation. No obvious bowel mass. APPENDIX: Not identified. PELVIS: No mass. No free fluid. Normal bladder. ABDOMINAL WALL: No masses. No hernias. BONES: Lumbar degenerative disc disease. OTHER: No other significant finding. IMPRESSION: There are no acute findings in the abdomen or pelvis. There is mild diverticulosis coli . There is degenerative disc disease in the lumbar spine. TECHNICAL DOCUMENTATION: JOB ID: [id number] Quality ID # [id number]: Final reports with documentation of one or more dose reduction techniques (e.g., Au tomated exposure control, adjustment of the mA and/or kV according to patient size, use of iterative reconstruction technique) 2010 [employer]- All Rights Reserved Reading location - IP/workstation name: [email or web address]
== END ==
LOC: RAD 09:19
PROVIDERS: ATTEND Internal Medicine Gastroenterology
DX: K57.30 Diverticulosis of large intestine without perforation or abscess without bleeding (principal); R10.13 Epigastric pain; M51.36 Other intervertebral disc degeneration, lumbar region
CPT/HCPCS: 74177; 82565